=== PATIENT | female | born 1990 | race Caucasian/White ===

== ENCOUNTER → 2019-05-21 | Outpatient (CLI) | payer MEDICAID ==
[2019-05-21 10:49] LABS: HEMATOCRIT 32 % (35-52); HEMOGLOBIN 11.1 G/DL (11.5-16.0); MEAN CORPUSCULAR HEMOGLOBIN 33 PG (25-34); MEAN CORPUSCULAR HGB CONC 35 G/DL (32-36); MEAN CORPUSCULAR VOLUME 96 FL (80-99); RED CELL DISTRIBUTION WIDTH 13.7 % (10.0-14.5); WHITE BLOOD COUNT 5.8 10^3/uL (4.3-11.0)
[2019-05-21 10:50] LABS: BASOPHILS % (AUTO) 0 % (0-10); EOSINOPHILS # (AUTO) 0.1 10^3/uL (0.0-0.3); EOSINOPHILS % (AUTO) 2 % (0-10); LYMPHOCYTES # (AUTO) 1.3 X 10^3 (1.0-4.0); LYMPHOCYTES % (AUTO) 22 % (12-44); MEAN PLATELET VOLUME 10.4 FL (7.4-10.4); MONOCYTES # (AUTO) 0.4 X 10^3 (0.0-1.0); MONOCYTES % (AUTO) 7 % (0-12); NEUTROPHILS % (AUTO) 69 % (42-75); PLATELET COUNT 243 10^3/uL (130-400)
== END ==
LOC: LAB FS 09:45
PROVIDERS: ATTEND Family Medicine
DX: Z34.90 Encounter for supervision of normal pregnancy, unspecified, unspecified trimester (principal)
CPT/HCPCS: 36415; 82950; 85025; 86780; 86850; 87491

== ENCOUNTER 2019-06-23 16:35 | Outpatient (CLI) | payer MEDICAID ==
[~2019-06-23] VITALS: Ht 160 cm; Wt 66.9 kg
--- NOTE | 2019-06-23 16:30 | NUR ---
Pt arrived to unit ambulates self accompanied by s.o. wt obtained to room 315. plan of care reviewed with pt and s.o. void and gowned. To bed and oriented to room, call light and surroundings. to bed, monitors on.
[2019-06-23 16:50] VITALS: BP 121/83
[2019-06-23] MEDS ORDERED: PREN-37 PO (16:51)
[2019-06-23] MEDS ORDERED: VENL150C PO (16:51)
[2019-06-23 16:56] VITALS: BP 121/83
[2019-06-23 17:11] VITALS: BP 121/83
--- NOTE | 2019-06-23 17:55 | NUR ---
Up to bathroom.
[2019-06-23] MEDS ORDERED: BETAMETHASONE ACE/NA PHOS 6 MG/ML (CELESTONE SOLUSPAN) IM SCH (18:15)
[2019-06-23] MEDS ORDERED: TERBUTALINE INJ 1 MG/ML (BRETHINE) AMP SC ONE (18:15)
[2019-06-23] MEDS ORDERED: NS IV 1000 ML 1,000 ML IV ONE (18:15)
--- NOTE | 2019-06-23 19:32 | NUR ---
Dr. Bullard called with update on pt. Informed of recent contractions and FHT's. Informed that fluids are done, and that pt. is still 2cm, thick, and posterior. Dr. Bullard states that she is comfortable sending her home at this time. asks that nurse relay that pt will need to call office tomorrow to schedule next dose of Betamethasone.
[2019-06-23 19:41] VITALS: BP 116/74
--- NOTE | 2019-06-23 19:50 | NUR ---
Discharge paperwork reviewed. Pt. up and changed. Pt. left unit with SO smiling and talking. No s/s of distress.
--- NOTE | 2019-06-24 08:32 | Physician Query-Final Dx ---
Clinic Account Progress/Dx Physician Query: Please give diagnosis Please include # weeks gestation Date of Service June 23, 2019 at 16:35 GEORGES BETH June 24, 2019 08:32
== END 2019-06-23 19:50 ==
LOC: WSo 16:35 → LDRP 16:37 → WSo 19:50
PROVIDERS: ATTEND Family Medicine
DX: O62.9 Abnormality of forces of labor, unspecified (principal); Z3A.33 33 weeks gestation of pregnancy
CPT/HCPCS: 96360; 96372; 99214

== ENCOUNTER 2019-06-24 17:38 | Outpatient (CLI) | payer MEDICAID ==
[~2019-06-24] VITALS: Ht 160 cm; Wt 69.2 kg
[~2019-06-24 17:38] MED LIST: PREN-37 PO; VENL150C PO
--- NOTE | 2019-06-24 17:46 | NUR ---
ARCELIA LOMELI presented to unit via ambulation from ED, accompanied by s/o , with c/o CONTRACTIONS. Pt. weighed, gowned, voided, and to bed. EFHM and TOCO applied, VS taken. Pt. oriented to bed controls, call light, TV, heat, and A/C controls.
[2019-06-24 18:00] VITALS: BP 137/78
--- NOTE | 2019-06-24 18:07 | NUR ---
pt reports presenting to [facility] yesterday with same c/o's. states ctx's q 2-4 mins since 1600 today. was advised by to be evaluated. +FM. denies leaking fluid or vaginal bleeding.
[2019-06-24 18:11] LABS: BILIRUBIN,URINE NEGATIVE (NEGATIVE); CLARITY,URINE CLEAR; COLOR,URINE YELLOW; GLUCOSE, URINE (UA) NEGATIVE (NEGATIVE); KETONES,URINE 1+ (NEGATIVE); LEUKOCYTE ESTERASE ,URINE NEGATIVE (NEGATIVE); NITRITE,URINE NEGATIVE (NEGATIVE); PROTEIN,URINE NEGATIVE (NEGATIVE)
[2019-06-24 18:13] VITALS: BP 137/78
--- NOTE | 2019-06-24 18:18 | NUR ---
SVE per this RN. 1.5cm, thick, and posterior.
[2019-06-24 18:20] LABS: BACTERIA,URINE FEW /HPF; RBC,URINE RARE /HPF
--- NOTE | 2019-06-24 18:25 | NUR ---
was called with pt's admit c/o's. new orders received.
[2019-06-24] MEDS ORDERED: BETAMETHASONE ACE/NA PHOS 6 MG/ML (CELESTONE SOLUSPAN) ONE (18:34)
--- NOTE | 2019-06-24 18:46 | NUR ---
POC reviewed with pt and s/o. monitors dc'd.
--- NOTE | 2019-06-24 18:48 | NUR ---
dismissal instructions given, verbalizes understanding. reviewed sx's to RTC, encouraged to increase oral hydration, and Tylenol ES dosage for prn pain. signature page signed, placed on chart.
--- NOTE | 2019-06-24 18:55 | NUR ---
pt ambulated to private vehicle with @ side. pt stable with no sx's of distress noted.
[2019-06-25] MEDS ORDERED: BETAMETHASONE ACE/NA PHOS 6 MG/ML (CELESTONE SOLUSPAN) IM SCH (09:00)
--- NOTE | 2019-06-25 09:03 | Physician Query-Final Dx ---
GEORGES BETH 06/25/19 0903: Clinic Account Progress/Dx Physician Query: Please give diagnosis Please include # weeks gestation Date of Service June 24, 2019 at 17:38 INA ROBERTS MD 06/27/19 1819: Clinic Account Progress/Dx DIAGNOSIS: Diagnosis contractions at 33 1/7 wga. GEORGES BETH June 25, 2019 09:03 INA ROBERTS MD June 27, 2019 18:19
== END 2019-06-24 17:55 | disposition home or self-care (01) ==
LOC: WSo 17:38 → LDRP 17:39 → WSo 17:55
PROVIDERS: ATTEND Family Medicine
DX: O60.03 Preterm labor without delivery, third trimester (principal); Z3A.33 33 weeks gestation of pregnancy
CPT/HCPCS: 81000; 87088; 96372; 99213

== ENCOUNTER → 2019-07-16 | Outpatient (CLI) | payer MEDICAID | LOC: LAB FS 16:52 | PROVIDERS: ATTEND Family Medicine | DX: Z34.90 Encounter for supervision of normal pregnancy, unspecified, unspecified trimester (principal); Z3A.00 Weeks of gestation of pregnancy not specified | CPT/HCPCS: 87081 ==

== ENCOUNTER 2019-07-22 21:25 | Outpatient (CLI) | payer MEDICAID ==
[~2019-07-22] VITALS: Ht 160 cm; Wt 67.7 kg
--- NOTE | 2019-07-22 21:30 | NUR ---
ARCELIA LOMELI presented to unit via ambulation from ED, accompanied by SO, with c/o CONTRACTIONS. ARCELIA LOMELI weighed, gowned, voided, and to bed. EFHM and TOCO applied, VS taken. ARCELIA LOMELI oriented to bed controls, call light, TV, heat, and A/C controls.
[2019-07-22 21:40] VITALS: BP 133/97
--- NOTE | 2019-07-22 21:45 | NUR ---
Dr. ponce called regarding pt's arrival and exam. Will cont to monitor and orally hydrate for right now. Pt's due date clarified with , EDC 08-09-19, making pt 37.3weeks. sve no change since she was seen on friday at clinic. pt smokes 1 pk of cigarettes a day and did smoke before arriving.
[2019-07-22 21:52] LABS: BILIRUBIN,URINE NEGATIVE (NEGATIVE); CLARITY,URINE CLEAR; COLOR,URINE YELLOW; GLUCOSE, URINE (UA) NEGATIVE (NEGATIVE); KETONES,URINE TRACE (NEGATIVE); LEUKOCYTE ESTERASE ,URINE NEGATIVE (NEGATIVE); NITRITE,URINE NEGATIVE (NEGATIVE); PROTEIN,URINE TRACE (NEGATIVE)
[2019-07-22 22:09] LABS: AMORPHOUS SEDIMENT,UR FEW AMOR URATES /LPF; BACTERIA,URINE TRACE /HPF; RBC,URINE 0-2 /HPF
[2019-07-22] MEDS: D5 LR IV SOLUTION 1,000 ML IV SCH ×2 (22:39→23:45)
[2019-07-22 22:43] VITALS: BP 133/97
[2019-07-22] MEDS ORDERED: hydrOXYzine (VISTARIL/ATARAX) 25 MG capsule/tablet ONE (23:48)
[2019-07-23] MEDS ORDERED: hydrOXYzine (VISTARIL/ATARAX) 25 MG capsule/tablet PO ONE
[2019-07-23 00:25] VITALS: BP 127/81
[2019-07-23] MEDS: D5 LR IV SOLUTION 1,000 ML IV SCH (00:30)
[2019-07-23 06:00] VITALS: BP 124/58
--- NOTE | 2019-07-23 06:31 | NUR ---
Dr. Bullard called and updated on pt. DC orders received, and may eat breakfast. No need to do SVE, pt will be seen in clinic today and will check then.
--- NOTE | 2019-07-23 08:08 | NUR ---
ARCELIA LOMELI demonstrates understanding of discharge instructions and accurately returns instructions upon questioning. Copy of Post-Discharge Instructions and Medication Discharge Instructions given to patient. ARCELIA LOMELI is able to manage continuing needs after discharge. Patients belongings returned to patient. Skin dry and intact; no breakdown noted. Patient discharged from [facility] on 07-23-19 at 0808. ARCELIA LOMELI left floor via w/c, accompanied by s/o.
--- NOTE | 2019-07-23 08:30 | Physician Query-Final Dx ---
GEORGES BETH 07/23/19 0830: Clinic Account Progress/Dx Physician Query: Please give diagnosis Please include # weeks gestation Date of Service Jul 22, 2019 at 21:25 INA ROBERTS MD 07/26/19 1011: Clinic Account Progress/Dx DIAGNOSIS: Diagnosis Contractions without cervical change at 37 weeks and 3 days. GEORGES BETH Jul 23, 2019 08:30 INA ROBERTS MD Jul 26, 2019 10:11
== END 2019-07-23 08:08 | disposition home or self-care (01) ==
LOC: LDRP 21:25 → WSo 21:25
PROVIDERS: ATTEND Family Medicine
DX: Z34.93 Encounter for supervision of normal pregnancy, unspecified, third trimester (principal); Z3A.38 38 weeks gestation of pregnancy
CPT/HCPCS: 81000; 87088; 96360; 96361; 99214

== ENCOUNTER 2019-07-24 22:55 | Outpatient (CLI) | payer MEDICAID ==
[~2019-07-24] VITALS: Ht 160 cm; Wt 69.4 kg
--- NOTE | 2019-07-24 23:00 | NUR ---
ARCELIA LOMELI presented to unit via ambulation from ED, accompanied by s.o., with c/o CONTRACTIONS. ARCELIA LOMELI weighed, gowned, voided, and to bed. EFHM and TOCO applied, VS taken. ARCELIA LOMELI oriented to bed controls, call light, TV, heat, and A/C controls.
[2019-07-24] MEDS ORDERED: D5 LR IV SOLUTION 1,000 ML IV SCH (23:30)
[2019-07-24] MEDS ORDERED: D5 LR IV SOLUTION 1,000 ML IV ONE (23:33)
[2019-07-24 23:59] VITALS: BP 137/82
--- NOTE | 2019-07-25 00:16 | NUR ---
Dr. Devi called and informed of SVE results and ICU nurse at bedside attempting to start IV. Orders received to give fluids throughout night.
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
--- NOTE | 2019-07-25 00:44 | NUR ---
Signature sheet signed and placed on chart. Pt ambulating off unit at time with s.o. at side to private vehicle AMA. No distress noted.
--- NOTE | 2019-07-26 09:27 | Physician Query-Final Dx ---
Clinic Account Progress/Dx Physician Query: Please give diagnosis Please include # weeks gestation Date of Service Jul 24, 2019 at 22:55 GEORGES BETH Jul 26, 2019 09:27
== END 2019-07-25 00:44 | disposition left against medical advice (07) ==
LOC: WSo 22:55 → LDRP 22:56 → WSo 07-25 00:44
PROVIDERS: ATTEND Obstetrics & Gynecology
DX: O62.8 Other abnormalities of forces of labor (principal); Z3A.37 37 weeks gestation of pregnancy

== ENCOUNTER 2019-07-28 20:18 | Inpatient (IN) | payer MEDICAID ==
[~2019-07-28] VITALS: Ht 160 cm; Wt 69.4 kg
--- NOTE | 2019-07-28 20:25 | NUR ---
ARCELIA LOMELI presented to unit via ambulation from home/ED, accompanied by SO, with c/o LABOR. ARCELIA LOMELI weighed, gowned, voided, and to bed. EFHM and TOCO applied, VS taken. ARCELIA LOMELI oriented to bed controls, call light, TV, heat, and A/C controls.
[2019-07-28 20:45] VITALS: BP 136/87
[2019-07-28] MEDS ORDERED: MISOPROSTOL 100 MCG (CYTOTEC) TAB ONE (21:24)
[2019-07-28] MEDS ORDERED: MINERAL OIL CONCENTRATE 99.9% 15 ML UDC TOP PRN (22:45)
[2019-07-28] MEDS ORDERED: fentaNYL INJECTION 100 MCG/2 ML AMP IVP PRN (23:00)
[2019-07-28] MEDS: D5 LR IV SOLUTION 1,000 ML IV SCH (23:35)
[2019-07-28 23:41] VITALS: BP 135/86
[2019-07-29] VITALS (42 sets, daily range): BP systolic 114–149; BP diastolic 69–97
[2019-07-29] MEDS: CALCIUM CARBONATE 500 MG (TUMS) TAB.CHEW PO PRN ×2 (00:09→08:51)
[2019-07-29 00:24] LABS: BASOPHILS % (AUTO) 0 % (0-10); EOSINOPHILS # (AUTO) 0.1 10^3/uL (0.0-0.3); EOSINOPHILS % (AUTO) 1 % (0-10); HEMATOCRIT 30 % (35-52); HEMOGLOBIN 10.1 G/DL (11.5-16.0); LYMPHOCYTES # (AUTO) 1.3 X 10^3 (1.0-4.0); LYMPHOCYTES % (AUTO) 18 % (12-44); MEAN CORPUSCULAR HEMOGLOBIN 32 PG (25-34); MEAN CORPUSCULAR HGB CONC 34 G/DL (32-36); MEAN CORPUSCULAR VOLUME 94 FL (80-99); MEAN PLATELET VOLUME 10.7 FL (7.4-10.4); MONOCYTES # (AUTO) 0.5 X 10^3 (0.0-1.0); MONOCYTES % (AUTO) 7 % (0-12); NEUTROPHILS # (AUTO) 5.3 X 10^3 (1.8-7.8); NEUTROPHILS % (AUTO) 74 % (42-75); PLATELET COUNT 221 10^3/uL (130-400); RED CELL DISTRIBUTION WIDTH 14.2 % (10.0-14.5); WHITE BLOOD COUNT 7.1 10^3/uL (4.3-11.0)
[2019-07-29] MEDS: D5 LR IV SOLUTION 1,000 ML IV SCH (05:12)
[2019-07-29] MEDS ORDERED: CATHETER FLUSH 10 ML SYR IV SCH ×2 (06:00→14:00)
[2019-07-29] MEDS ORDERED: LACTATED RINGERS 1,000 ML IV SCH (07:00)
[2019-07-29] MEDS ORDERED: OXYTOCIN PRE-MIX DRIP 500 ML IV SCH ×2 (07:01→10:49)
[2019-07-29] MEDS ORDERED: fentaNYL 2 mcg/ml BUPIVA 0.125 100 ML ONE (07:21)
[2019-07-29] MEDS ORDERED: LACTATED RINGERS 1,000 ML IV ONE ×3 (07:24→08:08)
--- NOTE | 2019-07-29 07:39 | NUR ---
Luisana Donohue CRNA here for epidural placement. Procedure explained, consent reviewed and signed by anesthesia. Questions answered to patient's satisfaction. Time out taken to verify correct patient/procedure. Patient up to side of bed, assisted into sitting position. Betadine prep done x3 and sterile drape applied. Local done, see anesthesia record. Test dose given, see anesthesia record for drug and dosage. Epidural catheter secured in place. Epidural placement complete. Assisted back into bed, monitors adjusted. Epidural dosed, see anesthesia record. Epidural of Fentanyl/Bupvicaine @12cc/hr stated per pump. Patient tolerated procedure well.
[2019-07-29] MEDS ORDERED: fentaNYL INJECTION 100 MCG/2 ML AMP ONE (07:43)
[2019-07-29] MEDS ORDERED: BUPIVACAINE 0.25% 30 ML (SENSORCAINE) VIAL ONE (08:08)
[2019-07-29] MEDS ORDERED: ONDANSETRON 4 MG/2 ML (SDV) Z0FRAN IV PRN (08:15)
[2019-07-29] MEDS ORDERED: EPIDURAL (fentaNYL 2 MCG/ML BUPIVA 0.125%)100 ML BAG EPI PRN (08:15)
[2019-07-29] MEDS ORDERED: NALOXONE 0.4 MG/ML 1 ML (NARCAN) VIAL IV PRN (08:15)
--- NOTE | 2019-07-29 10:03 | History & Physical-OB ---
OB - Chief Complaint & HPI Date/Time Date of Admission: Date of Admission: Jul 28, 2019 at 21:42 Date seen by a Provider: Jul 29, 2019 Time Seen by a Provider: 09:50 Chief Complaint/History OB-Reason for Admission/Chief: Onset of Labor Hx : 6 Hx Para: 3 Expected Date of Delivery: Aug 09, 2019 Gestational Age in Weeks: 38 Gestational Age in Days: 3 Allergies and Home Medications Allergies Coded Allergies: cephalexin (Verified Allergy, Mild, 07/14/14) latex (Verified Allergy, Mild, 07/14/14) amoxicillin (Verified Allergy, Unknown, Vomiting, 06/23/19) Home Medications Vit/Iron Fumarate/FA 1 Each Tablet, 1 EACH PO DAILY, (Reported) Venlafaxine HCl 150 Mg Cap.er.24h, 150 MG PO DAILY, (Reported) Patient Home Medication List Home Medication List Reviewed: Yes OB - History Hx of Present Care: Yes Ultrasounds: Normal mid trimester US Obstetrical Complications: None Medical Complications: None Obstetrical History Hx : 6 Hx Para: 3 Hx Total # of Abortions (Spona: 2 Patient Past Medical History anxiety Social History/Family History Recent Infectious Disease Expo: No Alcohol Use: Denies Use Recreational Drug Use: No 2nd Hand Smoke Exposure: Yes OB - Admission Exam Physical Exam Vitals: Vital Signs 07/29/19 07/29/19 07:15 08:50 Temp 36.2 Pulse 86 Resp 18 B/P (MAP) 136/87 (103) Pulse Ox 99 O2 Delivery Room Air HEENT: NCAT Heart: Rhythm Normal Lungs: Clear Abdomen: Gravid Extremities: Normal Reflexes: Normal Cervical Dilatation: 6cm Effacement: 100% Station: -2 Membranes: Intact Heart Rate: 130's Accelerations: No Accelerations Decelerations: No Decelerations Short Term Variability: Present Coping Machine Operator Variability: Average (6-25) Contractions on Admission: < 5 Minutes Apart OB - Assessment/Plan/Diagnosis Assessment Admission Dx Normal labor at 38 3/7 wga. Admission Status: Inpatient Order (span 2 midnights) Reason for Inpatient Admission: Labor. Plan Plan: Other Other Plan Augment with pitocin. Epidural for pain. AROM shows thick meconium. Will call provider for delivery to suctioning. INA ROBERTS MD Jul 29, 2019 10:03
--- NOTE | 2019-07-29 10:54 | OB Labor & Delivery Record ---
Vag Delivery Note Vag Delivery Note Date of Delivery: 07/29/19 Preoperative Diagnosis: Allyson Brown is a (28 /Para 6 / 3, Gestational Age (wks)38with [3 days] Postoperative Diagnosis: Same Surgeon: INA ROBERTS Copyright Expert: [none] Anesthesia: [epidural] Delivery Type: [] Findings: [] Viable [male] infant, apgars [8/9] Lacerations:None Intact placenta with 3 vessel cord. No nuchal cord, body cord or shoulder dystocia Estimated Blood Loss: [250] ml Complications: None Condition: Stable Description of Procedure: The patient is a 28 year old female who presented [in labor]. She was admitted and informed consent was obtained. Her labor course was remarkable for [thick meconium] She progressed to complete dilatation and began to push. She was then set up for delivery. The 's head was delivered atraumatically in the [OA] position. The shoulders and remainder of the 's body were then delivered without difficulty. Upon delivery, the head was held below the level of the perineum and the mouth and nares were bulb suctioned. The cord was doubly clamped and cut after 60 seconds by father of on maternal abdomen. An intact placenta with 3-vessel cord delivered via Florin and there was found to be minimal bleeding.~ Vigorous fundal massage was performed and the fundus was found to be firm. IV oxytocin was given. Examination of the vagina and perineum revealed no lacerations. Following the repair, sponge, instrument and needle counts were correct. Mom and baby were both in stable condition in the labor suite. Vitals - Labs Vital Signs - I&O Vital Signs Date Time Temp Pulse Resp B/P (MAP) Pulse Ox O2 Delivery O2 Flow Rate FiO2 07/29/19 08:50 86 18 136/87 (103) 99 Room Air 07/29/19 08:45 83 18 137/83 (101) 98 Room Air 07/29/19 08:40 79 18 137/83 (101) 99 Room Air 07/29/19 08:32 69 18 131/90 (104) 98 Room Air 07/29/19 08:29 76 18 143/95 (111) 98 Room Air 07/29/19 08:26 69 18 136/97 (110) 98 Room Air 07/29/19 08:23 74 18 135/79 (97) 98 Room Air 07/29/19 08:20 74 18 127/87 (100) 98 Room Air 07/29/19 08:16 67 18 123/83 (96) 98 Room Air 07/29/19 08:13 68 18 128/89 (102) 98 Room Air 07/29/19 08:10 79 18 131/91 (104) 99 Room Air 07/29/19 08:07 68 18 137/87 (104) 99 Room Air 07/29/19 08:04 80 18 149/88 (108) 99 Room Air 07/29/19 08:01 75 18 136/86 (103) 96 Room Air 07/29/19 07:58 68 18 148/71 (96) 96 Room Air 07/29/19 07:53 74 18 127/89 (102) 100 Room Air 07/29/19 07:49 75 18 140/90 (107) 100 Room Air 07/29/19 07:40 66 18 140/91 (107) 100 Room Air 07/29/19 07:15 36.2 07/29/19 02:54 36.0 71 18 120/75 (90) Room Air 07/28/19 23:41 36.3 80 18 135/86 (102) 99 Room Air 07/28/19 20:45 36.4 84 18 100 Room Air INA ROBERTS MD Jul 29, 2019 10:54
[2019-07-29] MEDS ORDERED: MEASLES,MUMPS,RUBELLA 1 EA INJ SQ ONE (11:00)
[2019-07-29] MEDS ORDERED: TETANUS,DIPTH,PERTUSS P/F (BOOSTRIX) 0.5 ML VIAL IM ONE (11:00)
[2019-07-29] MEDS ORDERED: WITCH HAZEL(TUCKS) 40 EA JAR TOP PRN (11:00)
[2019-07-29] MEDS ORDERED: BENZOCAINE/MENTHOL (DERMOPLAST) 60 ML CAN TP PRN (11:00)
[2019-07-29] MEDS ORDERED: ACETAMINOPHEN 500 MG TAB (TYLENOL) PO SCH (14:00)
[2019-07-29] MEDS: IBUPROFEN 600 MG (MOTRIN) TAB PO SCH ×2 (15:16→21:07)
--- NOTE | 2019-07-29 15:30 | NUR ---
Motrin given. FFU/2, light rubra lochia noted, no clots expressed. Pericare performed, fresh vpad and underwear on. Pt assisted to standing position at side of bed, fresh gown on, to wheelchair without incident. Wheeled to room 309 accompanied by RN, S.O. and infant and assisted back to bed. Pt and S.O. oriented to room and call light. packet explained. Pt denies needs or concerns at this time.
[2019-07-29] MEDS: DOCUSATE SODIUM 100 MG (COLACE) CAP PO SCH (21:07)
[2019-07-30] MEDS: IBUPROFEN 600 MG (MOTRIN) TAB PO SCH ×2 (04:08→09:43)
[2019-07-30 04:10] VITALS: BP 119/57
[2019-07-30 06:07] LABS: BASOPHILS % (AUTO) 0 % (0-10); EOSINOPHILS # (AUTO) 0.1 10^3/uL (0.0-0.3); EOSINOPHILS % (AUTO) 2 % (0-10); HEMATOCRIT 27 % (35-52); HEMOGLOBIN 8.8 G/DL (11.5-16.0); LYMPHOCYTES # (AUTO) 1.8 X 10^3 (1.0-4.0); LYMPHOCYTES % (AUTO) 25 % (12-44); MEAN CORPUSCULAR HEMOGLOBIN 31 PG (25-34); MEAN CORPUSCULAR HGB CONC 33 G/DL (32-36); MEAN CORPUSCULAR VOLUME 95 FL (80-99); MEAN PLATELET VOLUME 10.6 FL (7.4-10.4); MONOCYTES # (AUTO) 0.6 X 10^3 (0.0-1.0); MONOCYTES % (AUTO) 8 % (0-12); NEUTROPHILS # (AUTO) 4.7 X 10^3 (1.8-7.8); NEUTROPHILS % (AUTO) 65 % (42-75); PLATELET COUNT 202 10^3/uL (130-400); RED CELL DISTRIBUTION WIDTH 14.3 % (10.0-14.5); WHITE BLOOD COUNT 7.2 10^3/uL (4.3-11.0)
[2019-07-30] MEDS ORDERED: PRENATAL VITAMIN 1 EA TAB PO SCH (07:00)
[2019-07-30] MEDS ORDERED: VENlafaxine XR 75 MG (EFFEXOR XR) CAP PO SCH (07:00)
--- NOTE | 2019-07-30 07:15 | NUR ---
Dr Bullard here to see pt.
--- NOTE | 2019-07-30 07:36 | NUR ---
report given to Summer FOREMAN
[2019-07-30 07:53] VITALS: BP 130/79
--- NOTE | 2019-07-30 08:19 | Anesthesia-Regional Post-Op ---
Regional Patient Condition Mental Status: Alert, Oriented x3 Circulation: Same as Pre-Op Headache: Absent Sensation: Full Recovery Motor Block: Absent Post Op Complications Complications None Follow Up Care/Instructions Patient Instructions None needed. Anesthesia/Patient Condition Patient is doing well, no complaints, stable vital signs, no apparent adverse anesthesia problems. No complications reported per nursing. ALYSSA MAHAJAN CRNA Jul 30, 2019 08:19
[2019-07-30] MEDS: DOCUSATE SODIUM 100 MG (COLACE) CAP PO SCH (09:42)
[2019-07-30] MEDS ORDERED: IBUP-844 PO (10:20)
--- NOTE | 2019-07-30 10:21 | Discharge Summary ---
Discharge Inst-Women's Serv Reconcile Patient Problems Problems Reviewed?: Yes Depart Medications New, Converted or Re-Newed RX: Transmitted to Pharmacy Follow Up/Instructions Goal/Follow Up: [address] Roberts Activity Activity: Activity as Tolerated Driving Instructions: You May Drive NO SMOKING: NO SMOKING Nothing Inside Vagina: No Douching, No [place], No Tampons Diet Discharge Diet: No Restrictions Symptoms to Report to : Fever Over 101 Degrees F, Vaginal Bleeding Increase For Any Problems or Questions: Contact Your Physician INA ROBERTS MD Jul 30, 2019 10:21
--- NOTE | 2019-07-30 10:25 | Discharge Summary ---
Diagnosis/Chief Complaint Date of Admission Jul 28, 2019 at 21:42 Date of Discharge July 29, 2019 Admission Diagnosis Admission Diagnosis Term labor at 38 3/7 wga Discharge Diagnosis Term vaginal delivery at 38 3/7 wga Problems/Diagnosis: (1) care following vaginal delivery Assessment & Plan: Patient had vaginal delivery. see note for details. Post- course was uneventful. Discharge Summary-OBS Procedures None. Discharge Physical Examination Allergies: Coded Allergies: cephalexin (Verified Allergy, Mild, 07/14/14) latex (Verified Allergy, Mild, 07/14/14) amoxicillin (Verified Allergy, Unknown, Vomiting, 06/23/19) Vitals & I&Os Vital Sign - Last 12Hours Date Time Temp Pulse Resp B/P (MAP) Pulse Ox O2 Delivery O2 Flow Rate FiO2 07/30/19 07:53 36.6 64 18 130/79 (96) 99 Room Air General Appearance: Alert, Oriented X3 HEENT: Atraumatic Respiratory: Clear to Auscultation Cardiovascular: Regular Rate Abdominal: Other (fundus firm below umbilicus) Extremities: No Edema Skin: No Rashes Neuro: Normal Gait Psych/Mental Status: Mental Status NL Hospital Course Was the Problem List Reviewed?: Yes Unremarkable. Labs Laboratory Tests 07/30/19 05:45: White Blood Count 7.2, Red Blood Count 2.80L, Hemoglobin 8.8L, Hematocrit 27L, Mean Corpuscular Volume 95, Mean Corpuscular Hemoglobin 31, Mean Corpuscular Hemoglobin Concent 33, Red Cell Distribution Width 14.3, Platelet Count 202, Mean Platelet Volume 10.6H, Neutrophils (%) (Auto) 65, Lymphocytes (%) (Auto) 25, Monocytes (%) (Auto) 8, Eosinophils (%) (Auto) 2, Basophils (%) (Auto) 0, Neutrophils # (Auto) 4.7, Lymphocytes # (Auto) 1.8, Monocytes # (Auto) 0.6, Eosinophils # (Auto) 0.1, Basophils # (Auto) 0.0 Discharge Instructions to patient/family Please see electronic discharge instructions given to patient. Discharge Medications Reviewed and agree with Discharge Medication list on patient's Discharge Instruction sheet Clinical Quality Measures DVT/VTE Risk/Contraindication: Risk Factor Score Per Nursin RFS Level Per Nursing on Admit: 2=Moderate INA ROBERTS MD Jul 30, 2019 10:25
[2019-07-30 11:36] VITALS: BP 130/79
--- NOTE | 2019-07-30 12:30 | NUR ---
ARCEILA LOMELI demonstrates understanding of discharge instructions and accurately returns instructions upon questioning. Copy of Post-Discharge Instructions and Medication Discharge Instructions given to patient. ARCELIA LOMELI is able to manage continuing needs after discharge. Patients belongings returned to patient. Skin dry and intact; no breakdown noted. Patient discharged from [facility] on 07/30/19 at 1230 . ARCELIA LOMELI left floor via ambulation, accompanied by and women services staff.
== END 2019-07-30 12:30 | disposition home or self-care (01) | DRG 807 ==
LOC: LDRP 20:18 → WSo 20:18 → LDRP 21:42
PROVIDERS: ADMIT Family Medicine; ATTEND Family Medicine
PROC: 10E0XZZ Delivery of Products of Conception, External Approach (ICD-10-PCS; principal; 2019-07-29)
DX: O77.0 Labor and delivery complicated by meconium in amniotic fluid (principal); Z3A.38 38 weeks gestation of pregnancy; Z37.0 Single live birth
CPT/HCPCS: 36415; 85025; 86850; 86900; 86901; 99212

== ENCOUNTER 2019-09-27 12:04 | Emergency (ER) | payer MEDICAID ==
[~2019-09-27 12:04] MED LIST changes: +IBUP-844 PO
[2019-09-27 12:12] VITALS: BP 141/89
--- NOTE | 2019-09-27 12:24 | ED Lower Extremity ---
General Chief Complaint: Lower Extremity Stated Complaint: LT KNEE INJ Nursing Triage Note: Twisted left knee and heard a pop about an hour ago. Is currently rating pain at 5/10. Has not had pain meds prior to arrival. Pain is worsened by bending the knee and walking. Nursing Sepsis Screen: No Definite Risk Source: patient Exam Limitations: no limitations History of Present Illness Date Seen by Provider: Sep 27, 2019 Time Seen by Provider: 12:10 Initial Comments The patient is a pleasant 28-year-old female who presents for evaluation of left knee pain. 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 She felt immediate pain and was unable to fully weight-bear without excruciating pain. She denies previous injury to the left knee. She is alert and oriented 4, calm, and appears to be in no distress. She states that she has crutches at home. Her drove her to the emergency department today. She says that when she straightened the leg out it doesn't hurt very much but when she bends it the pain gets significantly worse. It does not feel unstable when walking. Onset: just prior to arrival Severity: moderate Pain/Injury Location: left knee Method of Injury: twisted Modifying Factors: Improves With Movement (and weight-bearing make it worse) Allergies and Home Medications Allergies Coded Allergies: cephalexin (Verified Allergy, Mild, 07/14/14) latex (Verified Allergy, Mild, 07/14/14) amoxicillin (Verified Allergy, Unknown, Vomiting, 06/23/19) Home Medications Ibuprofen 600 Mg Tablet, 600 MG PO Q6HR PRN for PAIN-MODERATE (5-7) Prescribed by: INA ROBERTS on 07/30/19 1020 Vit/Iron Fumarate/FA 1 Each Tablet, 1 EACH PO DAILY, (Reported) Venlafaxine HCl 150 Mg Cap.er.24h, 150 MG PO DAILY, (Reported) Patient Home Medication List Home Medication List Reviewed: Yes Review of Systems Constitutional: no symptoms reported EENTM: no symptoms reported Respiratory: no symptoms reported Cardiovascular: no symptoms reported Gastrointestinal: no symptoms reported Genitourinary: no symptoms reported Musculoskeletal: joint pain (left knee) Skin: no symptoms reported Psychiatric/Neurological: No Symptoms Reported All Other Systems Reviewed Negative Unless Noted: Yes Past Gnxzdqb-Wzjfnu-Umgtbq Hx Past Med/Social Hx: Reviewed Nursing Past Med/Soc Hx Patient Social History Alcohol Use: Denies Use Recreational Drug Use: No Smoking Status: Current Everyday Smoker Type Used: Cigarettes 2nd Hand Smoke Exposure: Yes Recent Foreign Travel: No Contact w/Someone Who Travel: No Recent Infectious Disease Expo: No Recent Hopitalizations: No Physical Abuse: No Sexual Abuse: No Mistreated: No Fear: No Seasonal Allergies Seasonal Allergies: No Past Medical History Surgeries: No Abdominal Respiratory: Yes Asthma Cardiac: No Neurological: No Genitourinary: No Gastrointestinal: No Musculoskeletal: No Endocrine: Yes HEENT: No Cancer: No Psychosocial: Yes Anxiety, Depression Integumentary: No Blood Disorders: No Family Medical History Patient reports no known family medical history. Diabetes, Psychiatric Problems, Vascular Disease Physical Exam Vital Signs Vital Signs - First Documented 09/27/19 12:12 Temp 36.3 Pulse 70 Resp 16 B/P (MAP) 141/89 (106) Pulse Ox 99 Capillary Refill : Less Than 3 Seconds Height, Weight, BMI Height: 5'3" Weight: 120lbs. oz. [id number]; 27.10 BMI Method: General Appearance: WD/WN, no apparent distress HEENT: PERRL/EOMI, pharynx normal Neck: full range of motion, normal inspection Cardiovascular: regular rate, rhythm, no edema, no JVD Respiratory: normal breath sounds, no respiratory distress, no accessory muscle use Back: normal inspection, no vertebral tenderness Hips: bilateral hip non-tender, bilateral hip normal inspection, bilateral hip normal range of motion Knees: left knee soft tissue tenderness (left anterior/medial knee), left knee other (discomfort with anterior drawer on left) Ankles: bilateral ankle non-tender, bilateral ankle normal inspection, bilateral ankle normal range of motion Neurologic/Psychiatric: fitter mechanic II-XII nml as tested, no motor/sensory deficits, alert, normal mood/affect, oriented x 3 Skin: normal color, warm/dry Progress/Results/Core Measures Results/Orders My Orders Orders - KYLEE WHITE DO Knee 3 View Left (09/27/19 12:13) Ice: Apply To Affected Area (09/27/19 12:18) Knee Immobilizer (09/27/19 12:18) Tramadol Tablet (Ultram Tablet) (8/10/20 12:30) Vital Signs/I&O 09/27/19 12:12 Temp 36.3 Pulse 70 Resp 16 B/P (MAP) 141/89 (106) Pulse Ox 99 Blood Pressure Mean: 106 Progress Progress Note : Progress Note @1232 - patient updated on x-ray results which are acutely unremarkable. She'll be given a knee immobilizer and crutches as well as pain medication to go home with. Advised the patient to follow up with orthopedics within the next 1-2 days and to return to the emergency department immediately for new or worsening symptoms. Diagnostic Imaging Diagonstic Imaging: Xray Comments [facility]. [place], [place] NAME: ARCELIA LOMELI [facility] REC#: [id number] PT STATUS: REG ER : 1990 PHYSICIAN: KYLEE WHITE DO ADMIT DATE: 09/27/19/ER FS Draft Date of Exam:09/27/19 KNEE 3 VIEW LEFT INDICATION: Twisted left knee and pain. TIME OF EXAM: 12:21 PM 3 views of the left knee were obtained. FINDINGS: Alignment is normal. Joint spaces are well maintained. The articular surfaces are smooth. No fracture, dislocation or effusion is detected. IMPRESSION: No acute bony abnormality is detected. Dictated on workstation # [id number] Dict: 09/27/19 1225 Trans: 09/27/19 1226 [id number] Interpreted by: JANA TENA MD Electronically signed by: Departure Impression Primary Impression: Internal derangement of left knee Disposition: 01 HOME, SELF-CARE Condition: Stable Departure-Patient Inst. Decision time for Depature: 12:35 Referrals: INA ROBERTS MD (PCP/Family) Primary Care Physician Patient Instructions: Internal Derangement of the Knee Add. Discharge Instructions: Follow-up with orthopedics in the next 1-2 days. Return to the emergency Department immediately for new or worsening symptoms. Take the prescribed medicine as directed, as needed. Use the knee immobilizer and crutches provided. Scripts Hydrocodone/Acetaminophen (Hydrocodone-Acetamin 5-325 mg) 1 Each Tablet 1 EACH PO Q4H PRN for PAIN-MODERATE (5-7) for 5 Days, #15 TAB Prov: KYLEE WHITE DO 09/27/19 KYLEE WHITE DO Sep 27, 2019 12:24
--- NOTE | 2019-09-27 12:27 | Diagnostic Imaging Report ---
INDICATION: Twisted left knee and pain. TIME OF EXAM: 12:21 PM 3 views of the left knee were obtained. FINDINGS: Alignment is normal. Joint spaces are well maintained. The articular surfaces are smooth. No fracture, dislocation or effusion is detected. IMPRESSION: No acute bony abnormality is detected. Dictated by: Dictated on workstation # [id number]
[2019-09-27] MEDS ORDERED: HYDR-3812 PO (12:40)
== END 2019-09-27 12:45 | disposition home or self-care (01) ==
LOC: EDUNIT# 12:04 → ER FS 12:06
DX: M23.92 Unspecified internal derangement of left knee (principal); F41.9 Anxiety disorder, unspecified; F32.9 Major depressive disorder, single episode, unspecified; Z88.1 Allergy status to other antibiotic agents; F17.210 Nicotine dependence, cigarettes, uncomplicated; Z91.040 Latex allergy status; Z88.0 Allergy status to penicillin; X50.1XXA Overexertion from prolonged static or awkward postures, initial encounter; Y92.59 Other trade areas as the place of occurrence of the external cause
CPT/HCPCS: 73562

== ENCOUNTER → 2020-01-04 | Outpatient (CLI) | payer MEDICAID ==
[~2020-01-04] MED LIST changes: +ACHD5005 PO
[2020-01-04 16:47] LABS: BASOPHILS % (AUTO) 1 % (0-10); EOSINOPHILS # (AUTO) 0.1 10^3/uL (0.0-0.3); EOSINOPHILS % (AUTO) 1 % (0-10); HEMATOCRIT 40 % (35-52); HEMOGLOBIN 13.8 G/DL (11.5-16.0); LYMPHOCYTES # (AUTO) 1.7 X 10^3 (1.0-4.0); LYMPHOCYTES % (AUTO) 25 % (12-44); MEAN CORPUSCULAR HEMOGLOBIN 31 PG (25-34); MEAN CORPUSCULAR HGB CONC 35 G/DL (32-36); MEAN CORPUSCULAR VOLUME 90 FL (80-99); MEAN PLATELET VOLUME 10.1 FL (7.4-10.4); MONOCYTES # (AUTO) 0.4 X 10^3 (0.0-1.0); MONOCYTES % (AUTO) 5 % (0-12); NEUTROPHILS # (AUTO) 4.6 X 10^3 (1.8-7.8); NEUTROPHILS % (AUTO) 68 % (42-75); PLATELET COUNT 257 10^3/uL (130-400); WHITE BLOOD COUNT 6.8 10^3/uL (4.3-11.0)
[2020-01-04 17:01] LABS: ERYTHROCYTE SEDIMENTATION RATE 3 MM/HR (0-20)
[2020-01-04 17:08] LABS: ALANINE AMINOTRANSFERASE 17 U/L (0-55); ALBUMIN 4.6 GM/DL (3.2-4.5); ALKALINE PHOSPHATASE 58 U/L (40-136); BILIRUBIN,TOTAL 0.9 MG/DL (0.1-1.0); BUN/CREATININE RATIO 12; CALCIUM 9.3 MG/DL (8.5-10.1); CARBON DIOXIDE 25 MMOL/L (21-32); CHLORIDE 104 MMOL/L (98-107); CREATININE SERUM 0.73 MG/DL (0.60-1.30); GFR ESTIMATED > 60; GLUCOSE 85 MG/DL (70-105); POTASSIUM 3.9 MMOL/L (3.6-5.0); SODIUM 140 MMOL/L (135-145); TOTAL PROTEIN 7.1 GM/DL (6.4-8.2)
== END ==
LOC: LAB FS 15:47
PROVIDERS: ATTEND Family Medicine
DX: M25.50 Pain in unspecified joint (principal)
CPT/HCPCS: 36415; 80053; 85025; 85652; 86038; 86141; 86200

== ENCOUNTER 2020-01-07 15:06 | Emergency (ER) | payer MEDICAID ==
[~2020-01-07] VITALS: Ht 157 cm; Wt 62.0 kg
[2020-01-07 15:18] VITALS: BP 128/93
--- NOTE | 2020-01-07 15:27 | ED Upper Extremity ---
General Chief Complaint: Upper Extremity Stated Complaint: LT HAND PAIN Source: patient History of Present Illness Date Seen by Provider: Jan 07, 2020 Time Seen by Provider: 15:15 Initial Comments Patient is a 29-year-old right-handed female presents with injury to her left hand. Patient was walking by her kitchen when she actually bumped the dorsum of her left hand onto a hard countertop. There is minimal bruising no swelling redness or deformity appreciated. Patient has full use of left hand. Patient did apply ice prior to coming to the ED. Onset: just prior to arrival Pain/Injury Location: left hand Method of Injury: direct blow Modifying Factors: Improves With Cold Therapy Allergies and Home Medications Allergies Coded Allergies: cephalexin (Verified Allergy, Mild, 07/14/14) latex (Verified Allergy, Mild, 07/14/14) amoxicillin (Verified Allergy, Unknown, Vomiting, 06/23/19) Home Medications Hydrocodone/Acetaminophen 1 Each Tablet, 1 EACH PO Q4H PRN for PAIN-MODERATE (5- 7) Prescribed by: KYLEE WHITE on 09/27/19 1240 Ibuprofen 600 Mg Tablet, 600 MG PO Q6HR PRN for PAIN-MODERATE (5-7) Prescribed by: INA ROBERTS on 07/30/19 1020 Vit/Iron Fumarate/FA 1 Each Tablet, 1 EACH PO DAILY, (Reported) Venlafaxine HCl 150 Mg Cap.er.24h, 150 MG PO DAILY, (Reported) Patient Home Medication List Home Medication List Reviewed: Yes Review of Systems Constitutional: see HPI EENTM: see HPI Respiratory: see HPI Cardiovascular: see HPI Gastrointestinal: see HPI Genitourinary: see HPI Musculoskeletal: see HPI Skin: see HPI Psychiatric/Neurological: See HPI Past Eyclkii-Fpdamz-Lzlnqn Hx Past Med/Social Hx: Reviewed Nursing Past Med/Soc Hx Patient Social History Alcohol Use: Denies Use Recreational Drug Use: No Smoking Status: Current Everyday Smoker Type Used: Cigarettes 2nd Hand Smoke Exposure: Yes Recent Foreign Travel: No Contact w/Someone Who Travel: No Recent Hopitalizations: No Physical Abuse: No Sexual Abuse: No Mistreated: No Fear: No Seasonal Allergies Seasonal Allergies: No Past Medical History Surgeries: No Abdominal Respiratory: Yes Asthma Cardiac: No Neurological: No Genitourinary: No Gastrointestinal: No Musculoskeletal: No Endocrine: Yes HEENT: No Cancer: No Psychosocial: Yes Anxiety, Personality Disorder, Schizophrenia, Depression Integumentary: No Blood Disorders: No Family Medical History Patient reports no known family medical history. Diabetes, Psychiatric Problems, Vascular Disease Physical Exam Vital Signs Capillary Refill : Height, Weight, BMI Height: 5'3" Weight: 120lbs. oz. 54.585390pr; 27.10 BMI Method: General Appearance: WD/WN, no apparent distress HEENT: PERRL/EOMI Hand: soft tissue tenderness (dorsum of left mid hand with small bruise) Neurologic/Tendon: normal sensation, normal motor functions Neurologic/Psychiatric: licensed mental health professional II-XII nml as tested Departure Communication (Admissions) Minor contusion to left hand. No imaging indicated at this time. Recommend supportive care with PCP follow-up as needed Impression Primary Impression: Contusion of hand Disposition: 01 HOME, SELF-CARE Condition: Stable Departure-Patient Inst. Decision time for Depature: 15:27 Referrals: INA ROBERTS MD (PCP/Family) Primary Care Physician Patient Instructions: Contusion (DC) Add. Discharge Instructions: Please take ibuprofen for pain and apply ice to affected areas needed. All discharge instructions reviewed with patient and/or family. Voiced understanding. SAMEER BARDALES DO Jan 07, 2020 15:27
== END 2020-01-07 15:37 | disposition home or self-care (01) ==
LOC: EDUNIT# 15:06 → ER FS 15:07
DX: S60.222A Contusion of left hand, initial encounter (principal); F41.9 Anxiety disorder, unspecified; F32.9 Major depressive disorder, single episode, unspecified; F17.210 Nicotine dependence, cigarettes, uncomplicated; Z91.040 Latex allergy status; Z88.1 Allergy status to other antibiotic agents; Z83.3 Family history of diabetes mellitus; W22.8XXA Striking against or struck by other objects, initial encounter
CPT/HCPCS: 99282

== ENCOUNTER → 2020-06-07 | Outpatient (CLI) | payer MEDICAID | LOC: LAB FS 15:46 | PROVIDERS: ATTEND Family Medicine | DX: N92.5 Other specified irregular menstruation (principal) | CPT/HCPCS: 36415; 84702 ==

== ENCOUNTER 2021-03-26 17:37 | Emergency (ER) | payer MEDICAID ==
[~2021-03-26] VITALS: Ht 157.4 cm; Wt 54.5 kg
[2021-03-26] MEDS ORDERED: RT-ALBUTEROL HFA 8.5 GM INHALER IH STA (17:51)
[2021-03-26] MEDS ORDERED: KETOROLAC 30 MG/ML VIAL ONE (17:53)
[2021-03-26] MEDS ORDERED: KETOROLAC 30 MG/ML VIAL IM ONE (18:00)
[2021-03-26] MEDS ORDERED: RT-ALBUINH IH (18:07)
--- NOTE | 2021-03-26 18:07 | ED Cough/URI ---
General Chief Complaint: Respiratory Problems Stated Complaint: SOB Source: patient Exam Limitations: no limitations History of Present Illness Date Seen by Provider: Mar 26, 2021 Time Seen by Provider: 17:39 Initial Comments 30-year-old female with past medical history of hypertension and anxiety coming in due to cough, fever, body aches, shortness of breath at all started around 24 hours ago. Had a send out Covid test performed which no results are back yet. Has not been vaccinated. Is unsure if she has been around anyone that is positive. Denies any vomiting, diarrhea, chest pain, abdominal pain, rash, or any other concerns. She also says she has an inhaler typically but she has run out. Allergies and Home Medications Allergies Coded Allergies: cephalexin (Verified Allergy, Mild, 07/14/14) latex (Verified Allergy, Mild, 07/14/14) amoxicillin (Verified Allergy, Unknown, Vomiting, 06/23/19) Patient Home Medication List Home Medication List Reviewed: Yes Albuterol Sulfate (Proair Hfa) 1 Puff Puff, 2 PUFF IH Q4H PRN for shortness of breath Prescribed by: JULIA PUENTE on 03/26/21 1807 Hydrocodone/Acetaminophen (Hydrocodone-Acetamin 5-325 mg) 1 Each Tablet, 1 EACH PO Q4H PRN for PAIN-MODERATE (5-7) Prescribed by: KYLEE WHITE on 09/27/19 1240 Ibuprofen (Ibu) 600 Mg Tablet, 600 MG PO Q6HR PRN for PAIN-MODERATE (5-7) Prescribed by: INA ROBERTS on 07/30/19 1020 Vit/Iron Fumarate/FA ( Tablet) 1 Each Tablet, 1 EACH PO DAILY, (Reported) Entered as Reported by: JAVAN FELIPE on 06/23/19 165 Venlafaxine HCl (Effexor Xr) 150 Mg Cap.er.24h, 150 MG PO DAILY, (Reported) Entered as Reported by: JAVAN FELIPE on 06/23/19 165 Review of Systems Review of Systems Constitutional: chills, fever EENTM: No blurred vision Respiratory: cough, short of breath Cardiovascular: No chest pain Gastrointestinal: No abdominal pain, No diarrhea, No nausea, No vomiting Genitourinary: no symptoms reported Musculoskeletal: no symptoms reported Skin: no symptoms reported Psychiatric/Neurological: No Symptoms Reported Hematologic/Lymphatic: No Symptoms Reported Immunological/Allergic: no symptoms reported All Other Systems Reviewed Negative Unless Noted: Yes Past Ikxelxz-Hbyajy-Thbhqx Hx Patient Social History Substance use?: No Seasonal Allergies Seasonal Allergies: No Past Medical History Surgeries: Yes Abdominal (D&C) Respiratory: Yes Asthma Cardiac: No Neurological: No Genitourinary: No Gastrointestinal: No Musculoskeletal: No Endocrine: Yes HEENT: No Cancer: No Psychosocial: Yes Anxiety, Personality Disorder, Schizophrenia, Depression Integumentary: No Blood Disorders: No Family Medical History Patient reports no known family medical history. Diabetes, Psychiatric Problems, Vascular Disease Physical Exam Capillary Refill : Height: 5'3" Weight: 120lbs. oz. 54.495668ny; 25.00 BMI Method: General Appearance: WD/WN, no apparent distress Eyes: Bilateral Eye Normal Inspection HEENT: PERRL/EOMI, normal ENT inspection, pharynx normal Neck: non-tender, full range of motion, supple, normal inspection Respiratory: chest non-tender, lungs clear, normal breath sounds, no respiratory distress, no accessory muscle use Cardiovascular: regular rate, rhythm, no edema, no murmur Gastrointestinal: normal bowel sounds, non tender, soft; No distended, No guarding, No rebound Extremities: normal range of motion, non-tender, normal inspection, no pedal edema, no calf tenderness, normal capillary refill Neurologic/Psychiatric: no motor/sensory deficits, alert, normal mood/affect Skin: normal color, warm/dry Lymphatic: no adenopathy Progress/Results/Core Measures Suspected Sepsis SIRS Temperature: Pulse: Respiratory Rate: Blood Pressure / Mean: Results/Orders My Orders Orders - JULIA PUENTE MD Ketorolac Injection (Toradol Injection) (03/26/21 18:00) Chest 1 View Ap/Pa Only (03/26/21 17:51) Albuterol Inhaler (Albuterol) (03/26/21 17:51) Dexamethasone Injection (Decadron Injec (03/26/21 18:00) Ketorolac Injection (Toradol Injection) (03/26/21 17:53) Medications Given in ED Current Medications Medications Dose Ordered Sig/Angelia Route Start Time Stop Time Status Last Admin Dose Admin Dexamethasone Sodium Phosphate 10 mg ONCE ONCE PO 03/26/21 18:00 03/26/21 18:01 DC 03/26/21 18:05 10 MG Ketorolac Tromethamine 15 mg ONCE ONCE IM 03/26/21 18:00 03/26/21 18:01 DC 03/26/21 18:07 15 MG Vital Signs/I&O Capillary Refill : Progress Note : Progress Note 30-year-old female with above history coming in due to flulike symptoms. ABCs were intact and vitals were stable on presentation. Specifically her oxygen is 100% even with ambulation. Lungs also are clear. Give her albuterol inhaler given she is out of this at home and she typically feels like this makes her feel better. With this potential history of reactive airway disease we will give her some Decadron here. She already had a COVID test done that likely will come back before ours would if we order it. Chest x-ray ordered to assess for pneumonia. Chest x-ray was clear. Patient continued to look good with stable vitals. I believe she is stable for discharge with outpatient follow-up. She was sent home with strict return precautions. Diagnostic Imaging Diagonstic Imaging: Xray Plain Films/CT/US/NM/MRI: chest Comments NAME: ARCELIA LOMELI [facility] REC#: [id number] PT STATUS: REG ER : 1990 PHYSICIAN: JULIA PUENTE MD ADMIT DATE: 03/26/21/ER FS Draft Date of Exam:03/26/21 CHEST 1 VIEW AP/PA ONLY EXAMINATION: Chest 1 view HISTORY: SOB, cough COMPARISON: None available. FINDINGS: Heart size and pulmonary vasculature are normal. The lungs are clear without consolidation, pleural effusion, or pneumothorax. The osseous structures are intact. IMPRESSION: 1. No acute radiographic abnormality in the chest. Dictated on workstation # [id number] Dict: 03/26/211804 Trans: 03/26/211806 [id number] [id number] Interpreted by: KYLEE WILSON DO Electronically signed by: Departure Impression Primary Impression: Person under investigation for COVID-19 Additional Impression: Shortness of breath Disposition: 01 HOME, SELF-CARE Condition: Stable Departure-Patient Inst. Decision time for Depature: 18:13 Referrals: INA ROBERTS MD (PCP/Family) Primary Care Physician Patient Instructions: COVID-19 Overview, Shortness of Breath, Adult ED Add. Discharge Instructions: Your chest x-ray did not show any evidence of pneumonia. Please use the inhaler as needed, we sent a refill to [facility]. We also gave you a steroid which should last several days. I recommend buying a pulse ox at [facility] or any pharmacy and checking it when you are feeling short of breath. If your oxygen is 89% or lower despite sitting down and taking deep breaths for a couple minutes then I recommend coming to the ER. Scripts Albuterol Sulfate (PROAIR HFA) 1 Puff Puff 2 PUFF IH Q4H PRN for shortness of breath for 30 Days, #1 EA 1 PUFF = 90 MCG Prov: JULIA PUENTE MD 03/26/21 Work/School Note: Work Release Form Date Seen in the Emergency Department: Mar 26, 2021 Return to Work: Mar 29, 2021 Restrictions: Return-No Fever (24hrs) JULIA PUENTE MD Mar 26, 2021 18:07
[2021-03-26 18:32] VITALS: BP 133/80
== END 2021-03-26 18:32 | disposition home or self-care (01) ==
LOC: EDUNIT# 17:37 → ER FS 17:38
DX: R06.02 Shortness of breath (principal); R05.1 Acute cough; I10 Essential (primary) hypertension; J45.909 Unspecified asthma, uncomplicated; F41.9 Anxiety disorder, unspecified; F32.A Depression, unspecified; Z91.040 Latex allergy status; Z79.899 Other long term (current) drug therapy; Z20.822 Contact with and (suspected) exposure to COVID-19
CPT/HCPCS: 71045

== ENCOUNTER → 2021-08-02 | Outpatient (CLI) | payer MEDICAID ==
[~2021-08-02] MED LIST changes: +RT-ALBUINH IH; -VENL150C PO; +VENL150C3 PO
--- NOTE | 2021-08-02 11:45 | Diagnostic Imaging Report ---
PROCEDURE: Pelvic comp/transvaginal sonogram. TECHNIQUE: Complete transabdominal and transvaginal pelvic ultrasound was performed. In addition, limited pelvic Doppler was performed. INDICATION: Menorrhagia and excessive frequent menstruation. Uterus is retroverted measuring 6.8 x 3.5 x 6.0 cm. Endometrium is 3 mm in thickness. No myometrial mass is detected. Right ovary measures 3.9 x 1.7 x 2.8 cm and the left ovary measures 3.1 x 1.4 x 1.7 cm. A right ovary does contain multiple follicles. There is a 17 mm x 14 mm simple cyst right ovary. There is a tubular structure in the left adnexa without internal blood flow, perhaps on the basis of hydrosalpinx. There is also some prominent vascularity in the left adnexa which may be owing to pelvic congestion. Small amount of free fluid in the cul-de-sac is noted. IMPRESSION: 1. 17 mm right ovarian cyst. 2. Tubular fluid-filled structure without vascularity in the left adnexa, perhaps on the basis of hydrosalpinx. There is also some prominent vascularity in the left adnexa, suggestive of pelvic congestion. No other abnormalities are seen. Dictated by: Dictated on workstation # [id number]
== END ==
LOC: RAD FS 08:56
PROVIDERS: ATTEND Family Medicine
DX: N83.201 Unspecified ovarian cyst, right side (principal)
CPT/HCPCS: 76830; 76856

== ENCOUNTER → 2021-11-28 | Outpatient (CLI) | payer MEDICAID | END | disposition home or self-care (01) | LOC: PREOP 05:41 | PROVIDERS: ATTEND Obstetrics & Gynecology | DX: Z01.818 Encounter for other preprocedural examination (principal) ==

== ENCOUNTER 2021-12-27 05:30 | Outpatient (CLI) | payer MEDICAID ==
[~2021-12-27] VITALS: Ht 157.5 cm; Wt 51.7 kg
[~2021-12-27 05:30] MED LIST changes: +ALBU8.5H6 IH; -RT-ALBUINH IH
[2021-12-27] MEDS ORDERED: LISI10TA25 PO (17:06)
[2021-12-27] MEDS ORDERED: BUSP10TA95 PO (17:06)
[2021-12-27] MEDS ORDERED: HYDR-700 PO (17:06)
[2021-12-27] MEDS ORDERED: MEDR150D8 IM (17:06)
== END 2021-12-27 17:13 | disposition home or self-care (01) ==
LOC: PREOP 05:30
PROVIDERS: ATTEND Obstetrics & Gynecology
DX: Z01.818 Encounter for other preprocedural examination (principal)

== ENCOUNTER 2022-01-03 12:11 | Day surgery (SDC) | payer MEDICAID ==
[~2022-01-03] VITALS: Ht 157.5 cm; Wt 51.7 kg
[2022-01-03] VITALS (10 sets, daily range): BP systolic 123–154; BP diastolic 73–107
--- NOTE | 2022-01-03 08:04 | Progress Note-Pre Operative ---
Pre-Operative Progress Note Date of Available H&P: Jan 03, 2022 Date H&P Reviewed: Jan 03, 2022 Time H&P Reviewed: 14:00 History & Physical: H&P Reviewed, No changes noted Changes from last HP Interim note today's date On chart Pre-Operative Diagnosis: Chronic pelvic pain/menorrhagia/uterine fibroids GHANSHYAM PORTER MD Jan 03, 2022 08:04
--- NOTE | 2022-01-03 08:05 | Progress Note-Post Operative ---
Post-Operative Progess Note Surgeon (s)/Timber Sizer (s) Surgeon GHANSHYAM PORTER MD Timber Sizer: Ellie PEREZ Pre-Operative Diagnosis Chronic pelvic pain/menorrhagia/uterine fibroids Post-Operative Diagnosis Same with Appendiceal mass and withpathology pending Procedure & Operative Findings Date of Procedure 01/03/22 Procedure Performed/Findings Total laparoscopic hysterectomy with bilateral salpingectomyAnd laparoscopic appendectomy Anesthesia Type General anesthesia Estimated Blood Loss Estimated blood loss (mL): Minimal Specimens/Packing Specimens Removed Uterus and fallopian tubesAnd appendix GHANSHYAM PORTER MD Jan 03, 2022 08:05
--- NOTE | 2022-01-03 08:11 | Discharge Inst-Surgical ---
Discharge Inst-Surgical Depart Medication/Instructions New, Converted or Re-Newed RX: Transmitted to Pharmacy Consults/Follow Up Patient Instructions: As directed Orders & Referrals Follow Up Appt: Return to clinic in 1 week for suture removal Call to make follow up appt. for patient in 4 weeks. Activity: Rest for 24 hours, than as tolerated. Wound Care: May remove Band-Aid tomorrow. Replace as desired. Keep incisions clean and dry. Wash daily with soap and water. Diet: As tolerated- shower or tub bathe as desired. No driving for 24 hours, no alcoholic beverages for 24 hours, and nothing per vagina (no tampons, douching, or intercourse) for 8 weeks. Patient to return to the clinic as soon as possible for: Temperature greater than 101F, Severe Pain, Foul discharge from incision or vagina, Excessive Bleeding (more than a period). Activity Activity as Tolerated: No Diet Discharge Diet: No Restrictions GHANSHYAM PORTER MD Jan 03, 2022 08:11
[~2022-01-03 12:11] MED LIST changes: +BUSP10TA95 PO; +DOCU-143 PO; +HYDR-700 PO; +IBUP-1780 PO; +LISI10TA25 PO; +MEDR150D8 IM; +OXYC-199 PO
[2022-01-03] MEDS: LACTATED RINGERS 1,000 ML IV PRN ×2 (12:50→16:14)
[2022-01-03 13:04] LABS: BASOPHILS # (AUTO) 0.1 10^3/uL (0.0-0.1); BASOPHILS % (AUTO) 1 % (0-10); EOSINOPHILS # (AUTO) 0.2 10^3/uL (0.0-0.3); EOSINOPHILS % (AUTO) 3 % (0-10); HEMATOCRIT 39 % (35-52); HEMOGLOBIN 13.4 g/dL (11.5-16.0); LYMPHOCYTES # (AUTO) 2.4 10^3/uL (1.0-4.0); LYMPHOCYTES % (AUTO) 36 % (12-44); MEAN CORPUSCULAR HEMOGLOBIN 33 pg (25-34); MEAN CORPUSCULAR HGB CONC 35 g/dL (32-36); MEAN CORPUSCULAR VOLUME 94 fL (80-99); MEAN PLATELET VOLUME 9.1 fL (9.0-12.2); MONOCYTES # (AUTO) 0.4 10^3/uL (0.0-1.0); MONOCYTES % (AUTO) 6 % (0-12); NEUTROPHILS # (AUTO) 3.5 10^3/uL (1.8-7.8); NEUTROPHILS % (AUTO) 53 % (42-75); PLATELET COUNT 413 10^3/uL (130-400); WHITE BLOOD COUNT 6.6 10^3/uL (4.3-11.0)
[2022-01-03] MEDS ORDERED: ROCURONIUM 10 MG/ML 5 ML SYRINGE IV ONE (13:51)
[2022-01-03] MEDS ORDERED: proPOfol 200 MG/20 ML (DIPRIVAN) VIAL IV ONE (13:51)
[2022-01-03] MEDS ORDERED: SEVOFLURANE (ULTANE) 15 ML INHAL SOLN ONE ×3 (13:51→16:11)
[2022-01-03] MEDS ORDERED: fentaNYL INJ 100 MCG/2 ML AMP ONE (13:51)
[2022-01-03] MEDS ORDERED: ONDANSETRON 4 MG/2 ML (SDV) Z0FRAN ONE (13:51)
[2022-01-03] MEDS ORDERED: LIDOCAINE PF 2% 5 ML (XYLOCAINE) VIAL ONE (13:51)
[2022-01-03] MEDS ORDERED: MIDAZOLAM 2 MG/2 ML (VERSED) VIAL ONE (13:51)
[2022-01-03] MEDS ORDERED: NEOSTIGMINE (BLOXIVERZ ) 1 MG/1ML 10 ML VIAL ONE ×2 (13:53→15:53)
[2022-01-03] MEDS ORDERED: GLYCOPYRROLATE 0.2 MG/ML (ROBINUL) 2 ML VIAL ONE ×2 (13:53→15:52)
[2022-01-03] MEDS ORDERED: KETOROLAC 30 MG/ML VIAL ONE ×2 (13:54→16:08)
[2022-01-03] MEDS ORDERED: LIDOCAINE/EPI 1%-1:100,000 (XYLOCAINE) 10 ML ONE (14:11)
[2022-01-03] MEDS ORDERED: morphine INJ 10 MG/ML 1ML (SYR OR VIAL) ONE (15:12)
[2022-01-03] MEDS ORDERED: ONDANSETRON 4 MG/2 ML (SDV) Z0FRAN IVP PRN (16:15)
[2022-01-03] MEDS ORDERED: MEPERIDINE (DEMEROL) INJ 50 MG/ML IVP ONE (16:15)
[2022-01-03] MEDS: KETOROLAC 30 MG/ML VIAL IV SCH ×2 (16:15→22:19)
[2022-01-03] MEDS ORDERED: fentaNYL INJ 100 MCG/2 ML AMP IVP ONE (16:15)
[2022-01-03] MEDS ORDERED: morphine INJ 10 MG/ML 1ML (SYR OR VIAL) IVP ONE (16:15)
[2022-01-03] MEDS ORDERED: MEPERIDINE (DEMEROL) INJ 100 MG/ML IVP PRN (16:15)
[2022-01-03] MEDS ORDERED: MEPERIDINE (DEMEROL) INJ 50 MG/ML ONE (16:19)
[2022-01-03] MEDS: ONDANSETRON 4 MG/2 ML (SDV) Z0FRAN IVP PRN ×2 (17:25→17:26)
[2022-01-03] MEDS: oxyCODONE/APAP 5/325MG (PERCOCET 5) TABLET PO PRN (18:25)
[2022-01-03] MEDS: D5 LR IV SOLUTION 1,000 ML IV SCH (18:32)
[2022-01-03] MEDS: MEPERIDINE (DEMEROL) INJ 100 MG/ML IM PRN (20:41)
[2022-01-03] MEDS: PROMETHAZINE INJ 25 MG/ML (PHENERGAN) AMP IM PRN (20:41)
[2022-01-03] MEDS: DOCUSATE SODIUM 100 MG (COLACE) CAP PO SCH (22:19)
[2022-01-04 00:10] VITALS: BP 122/75
[2022-01-04] MEDS: oxyCODONE/APAP 5/325MG (PERCOCET 5) TABLET PO PRN ×3 (00:11→08:24)
[2022-01-04] MEDS: D5 LR IV SOLUTION 1,000 ML IV SCH ×2 (00:28→08:38)
--- NOTE | 2022-01-04 02:59 | OPERATIVE REPORT ---
DATE OF SERVICE: 01/03/2022 PREOPERATIVE DIAGNOSES: Chronic pelvic pain, menorrhagia and uterine fibroids. POSTOPERATIVE DIAGNOSES: Chronic pelvic pain, menorrhagia and uterine fibroids with appendiceal mass. PROCEDURE: Total laparoscopic hysterectomy with bilateral salpingectomies as well as laparoscopic appendectomy. DESCRIPTION OF PROCEDURE: With the patient in the supine position, under satisfactory general anesthesia, she was repositioned in the dorsal lithotomy position in the [facility] and prepped and draped in the usual fashion for abdominal and vaginal surgery using da Luis Daniel assistance. Weighted speculum was placed in the posterior fornix of the vagina, cervix exposed and grasped anteriorly with a single tooth tenaculum. The uterus was sounded to 9.5 cm using a sound. The cervix was then serially dilated with Onofre dilators to accommodate a ERNESTINA II manipulator, which was placed using a 6 mm x 8 cm uterine probe and a 25 mm colpotomy ring. Sutures of #1 Vicryl were placed at 3 and 9 o'clock position of the cervix to affix the uterus to the manipulator. Tenaculum and speculum were removed. Angel catheter was placed in the urinary bladder. The patient was brought in low dorsal lithotomy position. A 12 mm incision was made 10 cm superior to the umbilicus. Veress needle was placed through that incision into the abdominal cavity. Correct placement was confirmed with a water drop test. The abdomen insufflated with 2.4 liters of carbon dioxide. The Veress needle was removed and a 12 mm Optiview laparoscopic port was placed through the incision. The abdominal wall was transilluminated and 8 mm ports were placed through incisions and both sides 8 cm lateral to the umbilicus. The patient was placed in Trendelenburg allowing the bowel was put up out of the pelvis. The da Luis Daniel column was advanced on the patient, docked to the operative instruments were placed in right and left lateral ports and I retired to the da Luis Daniel console. At the console using the vessel sealer on the right and the bipolar fenestrated grasper on the left, the pelvis was examined. Both ovaries were normal. The uterus was quite large bulky and mottled in appearance consistent with adenomyosis and potentially uterine fibroids. The fallopian tubes were normal in appearance. The ovaries were normal in appearance. Both ureters were seen to peristalse. Laparoscope was rotated. The appendix was identified. It was a vermiform appendix with a nodular lesion at the distal tip. Decision was made to go ahead with appendectomy concurrent with the hysterectomy. Attention was turned back to the pelvis. Right fallopian tube was grasped and elevated. The mesosalpinx was clamped, cauterized, and divided across to the utero-ovarian pedicle with the vessel sealer. Vessel sealer was then used to divide the uteroovarian pedicle and the round ligament and the broad ligament dissection was carried down onto the cardinal ligament on the left, thus allowing for removal of the fallopian tube eventually with the uterus. The same procedure was performed on the left with the same result. Both ovaries were conserved. The anterior lower uterine segment peritoneum was divided using monopolar benson in place of the vessel sealer. The anterior peritoneum was divided. The bladder was dissected down off the lower uterine segment. A colpotomy incision was started. At the 12 o'clock position on to the colpotomy ring, the incision was continued circumferentially until the entire colpotomy ring was exposed. The uterus with tubes still attached was extracted through the vagina. The vaginal cuff was closed with a single suture of V-Loc barbed suture starting from the right angle and continuing all the way across to the left angle, taking care to ensure inclusion of the uterine vessel pedicles bilaterally. Hemostasis was complete. Both ureters were still seen the peristalsing were normal in caliber. Attention was then turned to the appendix. The da Luis Daniel ports were left in place, but the column was undocked and removed from the patient. Using the camera on the right port, an Endo-BLANCHE in the middle port and a grasper in the left port, the appendix was grasped and elevated. Endo-BLANCHE was placed across the base of the appendix. The mesoappendix had been divided with the vessel sealer prior to removal of that instrument. The Endo-BLANCHE was fired the appendix from its attachment at the cecum. The Endobag was placed through the umbilical port. The appendix was placed in the bag and brought out through the umbilical port. The pelvis was copiously irrigated as was the stump of the appendix. The stump of the appendix was then treated with several drops of Betadine solution. Hemostasis was complete. No pathology remained. It was abnormal. The abdomen was evacuated of the insufflated gas in the process of removing the ports. The skin incisions were closed with nylon sutures. The fascia of the supraumbilical incision was closed with a [id number] suture of 2-0 Vicryl. Speculum was replaced in the vagina. The vaginal cuff was examined. It was completely reapproximated and completely hemostatic. Sponge and needle counts were correct. Hemostasis was assured. Blood loss was between 1500 mL. The patient tolerated the procedure well and was uneventfully awakened from her general anesthesia and transferred to recovery room in stable condition. Job ID: [id number] DocumentID: [id number] Dictated Date: 01/03/2022 16:01:55 Physician Underwriter Date: 01/04/2022 02:57:00 Dictated By: GHANSHYAM PORTER MD
[2022-01-04 04:22] VITALS: BP 127/72
[2022-01-04] MEDS: KETOROLAC 30 MG/ML VIAL IV SCH (04:48)
[2022-01-04] MEDS: PROMETHAZINE INJ 25 MG/ML (PHENERGAN) AMP IM PRN (05:16)
[2022-01-04] MEDS: MEPERIDINE (DEMEROL) INJ 100 MG/ML IM PRN (05:16)
--- NOTE | 2022-01-04 07:03 | Progress Note ---
Standard Progress Note Progress Notes/Assess & Plan Date Seen by a Provider: Jan 04, 2022 Time Seen by a Provider: 07:01 Progress/Assessment & Plan This patient is without complaint. She is ambulating, voiding, tolerating oral intake well and has good pain control. Vital Signs Date Time Temp Pulse Resp B/P (MAP) Pulse Ox O2 Delivery O2 Flow Rate FiO2 01/04/22 04:22 36.9 84 20 127/72 (90) 95 Room Air 01/04/22 00:10 36.9 99 16 122/75 (91) 99 Room Air 01/03/22 20:40 36.7 85 18 127/73 (91) 96 Room Air 01/03/22 20:04 Room Air 01/03/22 17:25 36.0 60 18 139/91 (107) 99 Room Air 01/03/22 17:00 Room Air 01/03/22 17:00 36.7 12 142/97 (112) 95 OxyMask 01/03/22 16:50 12 142/90 (107) 100 OxyMask 3.00 01/03/22 16:45 OxyMask 3.00 01/03/22 16:40 12 149/91 (110) 100 OxyMask 3.00 01/03/22 16:30 12 152/95 (114) 100 OxyMask 6.00 01/03/22 16:30 OxyMask 6 01/03/22 16:20 16 154/107 (123) 100 OxyMask 6.00 01/03/22 16:15 OxyMask 6 01/03/22 16:10 16 150/99 (116) 100 OxyMask 6.00 01/03/22 16:03 OxyMask 6 01/03/22 16:03 36.3 16 134/94 (107) 100 OxyMask 8 01/03/22 12:48 36.7 73 18 123/82 (96) 99 Room Air I & O 01/04/22 07:00 Intake Total 2650 ml Output Total 1405 ml Balance 1245 ml Vital signs are stable. Patient is afebrile. The abdomen is benign. The surgical incisions are clean dry and intact. Extremities show no clubbing or cyanosis. There is no Homans' sign. Assessment and plan Postoperative day #1 doing well. Plan is for routine convalescent care with discharge home and follow-up in clinic Final Diagnosis Menometrorrhagia GHANSHYAM OPRTER MD Jan 04, 2022 07:03
--- NOTE | 2022-01-04 07:36 | Anesthesia-General Post-Op ---
General Patient Condition Mental Status/LOC: Same as Preop Cardiovascular: Satisfactory Nausea/Vomiting: Absent Respiratory: Satisfactory Pain: Controlled Complications: Absent Post Op Complications Complications None Follow Up Care/Instructions Patient Instructions None needed. Anesthesia/Patient Condition Patient Condition Patient is doing well, no complaints, stable vital signs, no apparent adverse anesthesia problems. No complications reported per nursing. ANGIE QUINONES CRNA Jan 04, 2022 07:36
[2022-01-04 08:00] VITALS: BP 123/73
[2022-01-04] MEDS: DOCUSATE SODIUM 100 MG (COLACE) CAP PO SCH (08:26)
[2022-01-04 08:43] VITALS: BP 123/73
[2022-01-04] MEDS ORDERED: DOCUSATE SODIUM 100 MG (COLACE) CAP PO SCH (09:00)
[2022-01-04] MEDS ORDERED: IBUPROFEN 800 MG (MOTRIN) TAB PO SCH (16:15)
== END 2022-01-04 08:35 | disposition home or self-care (01) ==
LOC: SDC 12:11 → WS 17:27 → SDC 01-04 08:35
PROVIDERS: ATTEND Obstetrics & Gynecology
DX: D25.1 Intramural leiomyoma of uterus (principal); N80.30 Endometriosis of pelvic peritoneum, unspecified; N83.8 Other noninflammatory disorders of ovary, fallopian tube and broad ligament; R59.0 Localized enlarged lymph nodes; K38.8 Other specified diseases of appendix; F17.210 Nicotine dependence, cigarettes, uncomplicated
CPT/HCPCS: 36415; 84703; 85025; 87081; 94664

== ENCOUNTER 2022-05-12 21:54 | Emergency (ER) | payer MEDICAID ==
[~2022-05-12] VITALS: Ht 157.4 cm; Wt 52.1 kg
[2022-05-12] MEDS ORDERED: diphenhydrAMINE 50 MG/ML INJ (BENADRYL) IVP STA (22:11)
[2022-05-12] MEDS ORDERED: fentaNYL INJ 100 MCG/2 ML AMP IVP STA (22:11)
[2022-05-12] MEDS ORDERED: NS IV 1000 ML 1,000 ML IV STA (22:11)
[2022-05-12] MEDS ORDERED: DROPERIDOL 5 MG/2 ML (INAPSINE) ED ONLY! IV STA (22:11)
[2022-05-12] MEDS ORDERED: PANTOPRAZOLE 40 MG (PROTONIX) VIAL IV STA (22:11)
[2022-05-12] MEDS ORDERED: DICYCLOMINE 10 MG/ML (BENTYL) 2 ML AMP IM STA (22:11)
[2022-05-12 22:17] LABS: BASOPHILS % (AUTO) 1 % (0-10); EOSINOPHILS # (AUTO) 0.2 10^3/uL (0.0-0.3); EOSINOPHILS % (AUTO) 4 % (0-10); HEMATOCRIT 39 % (35-52); HEMOGLOBIN 13.6 g/dL (11.5-16.0); LYMPHOCYTES # (AUTO) 2.2 X 10^3 (1.0-4.0); LYMPHOCYTES % (AUTO) 39 % (12-44); MEAN CORPUSCULAR HEMOGLOBIN 33 pg (25-34); MEAN CORPUSCULAR HGB CONC 35 g/dL (32-36); MEAN CORPUSCULAR VOLUME 94 fL (80-99); MEAN PLATELET VOLUME 9.8 fL (9.0-12.2); MONOCYTES # (AUTO) 0.4 X 10^3 (0.0-1.0); MONOCYTES % (AUTO) 7 % (0-12); NEUTROPHILS # (AUTO) 2.8 X 10^3 (1.8-7.8); NEUTROPHILS % (AUTO) 50 % (42-75); PLATELET COUNT 222 10^3/uL (130-400); WHITE BLOOD COUNT 5.7 10^3/uL (4.3-11.0)
--- NOTE | 2022-05-12 22:21 | ED Abdominal Pain ---
General Chief Complaint: Abdominal/GI Problems Stated Complaint: ABD PAIN Source of Information: Patient, EMS, Old Records (Hysterectomy with appendectomy December [address] [facility] [address] Flood, OB/Gynecology) History of Present Illness Date Seen by Provider: May 12, 2022 Time Seen by Provider: 21:54 Initial Comments 31 yo female presenting by [facility] ambulance service with complaints of sudden onset LUQ abdominal pain with nausea and dry heaves. She reports having similar pain in the past with Lupus and Irritable bowel. she is screaming and crying out almost constantly and yelling that it hurts. She received 100 mcg of IV Fentanyl from EMS and she reports it helped a little but not very much. She states she had a normal bowel movement earlier today. She denies any pain or burning with urination. From review of her medical chart she had hysterectomy with bilateral salpingo-oophorectomy and appendectomy in December [address] PORTER OB psychiatry physician. She has a history of lupus, irritable bowel, chronic pelvic pain. She denies doing anything prior to onset of pain and symptoms tonight. She states she has had some similar pain in the past due to lupus and irritable bowel but it has been many years ago she cannot remember if there are medicines that had helped her at that time. She denies fever, chills, chest pain, cough, diarrhea, blood in her stool, blood in her urine. Timing/Duration: 1-3 Hours (Reports onset approximately 90 minutes prior to arrival in the ED) Severity/Quality: Severe, Cramping, Sharp Location: LUQ Radiation: No Radiation Activities at Onset: None Modifying Factors: Worsens With Movement, Worsens With Palpation Associated Symptoms: No Back Pain, No Chest Pain, No Diaphoresis, No Fever/Chills, No Fatigue, No Headache, No Heartburn; Nausea/Vomiting (Dry heaves); No Shortness of Air, No Swelling/Mass in Abdomen, No Syncope, No Weakness Allergies and Home Medications Allergies Coded Allergies: cephalexin (Verified Allergy, Mild, RASH, 12/27/21) latex (Verified Allergy, Mild, RASH, 12/27/21) amoxicillin (Verified Allergy, Unknown, Vomiting/RASH, 12/27/21) Patient Home Medication List Home Medication List Reviewed: Yes Albuterol Sulfate (Ventolin Hfa) 1 Puff Puff, 2 PUFF IH Q4H PRN for shortness of breath Prescribed by: JULIA PUENTE on 03/26/21 180 Buspirone HCl (Buspirone HCl) 10 Mg Tablet, 10 MG PO TID, (Reported) Entered as Reported by: INA ABARCA on 12/27/21 170 Dicyclomine HCl (Dicyclomine HCl) 10 Mg Capsule, 10 MG PO Q6H PRN for abdominal pain/cramping Prescribed by: ADE GREGORIO on 05/12/222326 Docusate Sodium (Colace) 100 Mg Capsule, 100 MG PO BID Prescribed by: GHANSHYAM KAUFMAN on 01/03/22 08 Hydrocodone/Acetaminophen (Hydrocodone-Acetamin 5-325 mg) 5 Mg-325 Mg Tablet, 1 TAB PO Q6H PRN for PAIN SEVERE Prescribed by: ADE GREGORIO on 05/12/22 232 Hydroxyzine HCl (Hydroxyzine HCl) 25 Mg Tablet, 25 MG PO TID, (Reported) Entered as Reported by: INA ABARCA on 12/27/21 170 Ibuprofen (Ibuprofen) 800 Mg Tablet, 800 MG PO Q6H PRN for PAIN Prescribed by: GHANSHYAM KAUFMAN on 01/03/22 0810 Lisinopril (Lisinopril) 10 Mg Tablet, 10 MG PO DAILY, (Reported) Entered as Reported by: INA ABARCA on 12/27/21 170 Ondansetron (Ondansetron Odt) 4 Mg Tab.rapdis, 4 MG PO Q6H PRN for NAUSEA/V OMITING Prescribed by: ADE GREGORIO on 05/12/222326 Oxycodone HCl/Acetaminophen (Percocet 5-325 mg Tablet) 5 Mg-325 Mg Tablet, 1 TAB PO Q6H PRN for PAIN-MODERATE Prescribed by: GHANSHYAM KAUFMAN on 01/03/22 0810 Review of Systems Review of Systems Constitutional: No chills, No fever EENTM: No Symptoms Reported Respiratory: No Symptoms Reported Cardiovascular: No Symptoms Reported Gastrointestinal: See HPI Genitourinary: No Symptoms Reported Musculoskeletal: no symptoms reported Skin: No rash Psychiatric/Neurological: Anxiety Past [id number]-[id number] Hx Patient Social History Tobacco Use?: Yes Tobacco type used: Cigarettes Smoking Status: Current Everyday Smoker Substance use?: No Alcohol Use?: No Pt feels they are or have been: No Seasonal Allergies Seasonal Allergies: Yes Past Medical History Surgery/Hospitalization HX: Lupus, HTN, Appy, Hysterectomy Surgeries: Yes (D & C) Abdominal Respiratory: Yes (ALLERY INDUCED) Asthma Currently Using CPAP: No Currently Using BIPAP: No Cardiac: Yes Hypertension Neurological: No Female Reproductive Disorders: Menstrual Problems, Ovarian Cyst Genitourinary: No Gastrointestinal: No Musculoskeletal: No Endocrine: No HEENT: No Cancer: No Psychosocial: Yes Anxiety, Bipolar, Schizophrenia, Depression Integumentary: No Blood Disorders: No Family Medical History Patient reports no known family medical history. Diabetes, Psychiatric Problems, Vascular Disease Physical Exam Vital Signs Vital Signs - First Documented 05/12/22 22:06 Temp 36.6 Pulse 76 Resp 18 B/P (MAP) 165/100 (121) Pulse Ox 100 O2 Delivery Room Air Capillary Refill : Height/Weight/BMI Height: 5'3" Weight: 120lbs. oz. 54.298217tn; 20.84 BMI Method: General Appearance: WD/WN, severe distress (Constantly screaming and crying out complaining of pain) HEENT: PERRL/EOMI, pharynx normal Neck: non-tender, full range of motion, supple, normal inspection Respiratory: chest non-tender, lungs clear, normal breath sounds, no respiratory distress, no accessory muscle use Cardiovascular: normal peripheral pulses, regular rate, rhythm Gastrointestinal: normal bowel sounds, soft, no pulsatile mass; No distended; guarding; No rebound; tenderness (Left upper quadrant abdominal pain with palpation.) Rectal: deferred Extremities: normal range of motion, non-tender, normal capillary refill Back: no CVA tenderness Neurologic/Psychiatric: alert, oriented x 3 Skin: normal color, warm/dry Images 1 - Tender to palpation and guarding in the left upper quadrant Progress/Results/Core Measures Results/Orders Lab Results Laboratory Tests Test 05/12/22 22:10 05/12/22 22:40 Range/Units White Blood Count 5.7 4.3-11.0 10^3/uL Red Blood Count 4.16 3.80-5.11 10^6/uL Hemoglobin 13.6 11.5-16.0 g/dL Hematocrit 39 35-52 % Mean Corpuscular Volume 94 80-99 fL Mean Corpuscular Hemoglobin 33 25-34 pg Mean Corpuscular Hemoglobin Concent 35 32-36 g/dL Red Cell Distribution Width 12.8 10.0-14.5 % Platelet Count 222 130-400 10^3/uL Mean Platelet Volume 9.8 9.0-12.2 fL Immature Granulocyte % (Auto) 0 % Neutrophils (%) (Auto) 50 42-75 % Lymphocytes (%) (Auto) 39 12-44 % Monocytes (%) (Auto) 7 0-12 % Eosinophils (%) (Auto) 4 0-10 % Basophils (%) (Auto) 1 0-10 % Neutrophils # (Auto) 2.8 1.8-7.8 X 10^3 Lymphocytes # (Auto) 2.2 1.0-4.0 X 10^3 Monocytes # (Auto) 0.4 0.0-1.0 X 10^3 Eosinophils # (Auto) 0.2 0.0-0.3 10^3/uL Basophils # (Auto) 0.0 0.0-0.1 10^3/uL Immature Granulocyte # (Auto) 0.0 0.0-0.1 10^3/uL Sodium Level 138 135-145 MMOL/L Potassium Level 3.4 L 3.6-5.0 MMOL/L Chloride Level 102 98-107 MMOL/L Carbon Dioxide Level 23 21-32 MMOL/L Anion Gap 13 5-14 MMOL/L Blood Urea Nitrogen 8 7-18 MG/DL Creatinine 0.66 0.60-1.30 MG/DL Estimat Glomerular Filtration Rate 119 BUN/Creatinine Ratio 12 Glucose Level 91 70-105 MG/DL Calcium Level 9.8 8.5-10.1 MG/DL Corrected Calcium 9.5 8.5-10.1 MG/DL Total Bilirubin 0.2 0.1-1.0 MG/DL Aspartate Amino Transf (AST/SGOT) 21 5-34 U/L Alanine Aminotransferase (ALT/SGPT) 16 0-55 U/L Alkaline Phosphatase 53 40-136 U/L C-Reactive Protein < 0.30 <0.50 MG/DL Total Protein 6.8 6.4-8.2 GM/DL Albumin 4.4 3.2-4.5 GM/DL Lipase 19 8-78 U/L Salicylates Level < 0.3 L 5.0-20.0 MG/DL Acetaminophen Level < 10 L 10-30 UG/ML Serum Alcohol 18 H <10 MG/DL Urine Color YELLOW Urine Clarity CLEAR Urine pH 7.5 5-9 Urine Specific Rosine 1.015 L 1.016-1.022 Urine Protein NEGATIVE NEGATIVE Urine Glucose (UA) NEGATIVE NEGATIVE Urine Ketones NEGATIVE NEGATIVE Urine Nitrite NEGATIVE NEGATIVE Urine Bilirubin NEGATIVE NEGATIVE Urine Urobilinogen 0.2 < = 1.0 MG/DL Urine Leukocyte Esterase NEGATIVE NEGATIVE Urine RBC (Auto) 1+ H NEGATIVE Urine RBC 5-10 H /HPF Urine WBC NONE /HPF Urine Squamous Epithelial Cells 10-25 H /HPF Urine Crystals NONE /LPF Urine Bacteria TRACE /HPF Urine Casts NONE /LPF Urine Mucus NEGATIVE /LPF Urine Culture Indicated NO Urine Opiates Screen NEGATIVE NEGATIVE Urine Oxycodone Screen NEGATIVE NEGATIVE Urine Methadone Screen NEGATIVE NEGATIVE Urine Propoxyphene Screen NEGATIVE NEGATIVE Urine Barbiturates Screen NEGATIVE NEGATIVE Ur Tricyclic Antidepressants Screen NEGATIVE NEGATIVE Urine Phencyclidine Screen NEGATIVE NEGATIVE Urine Amphetamines Screen NEGATIVE NEGATIVE Urine Methamphetamines Screen NEGATIVE NEGATIVE Urine Benzodiazepines Screen NEGATIVE NEGATIVE Urine Cocaine Screen NEGATIVE NEGATIVE Urine Cannabinoids Screen NEGATIVE NEGATIVE My Orders Orders - ADE GREGORIO MD Ua Culture If Indicated (05/12/22 22:11) Cbc With Automated Diff (05/12/22 22:11) Comprehensive Metabolic Panel (05/12/22 22:11) Alcohol (05/12/22 22:11) Drug Screen Stat (Urine) (05/12/22 22:11) Acetaminophen (05/12/22 22:11) Salicylate (05/12/22 22:11) Ed Iv/Invasive Line Start (05/12/22 22:11) Monitor-Rhythm Ecg Trace Only (05/12/22 22:11) Lipase (05/12/22 22:11) Crp Fs (05/12/22 22:11) Ct Abdomen/Pelvis W (05/12/22 22:11) Ns Iv 1000 Ml (Sodium Chloride 0.9%) (05/12/22 22:11) Pantoprazole Injection (Protonix Injecti (05/12/22 22:11) Diphenhydramine Injection (Benadryl Inje (05/12/22 22:11) Fentanyl Inj (Sublimaze Injection) (05/12/22 22:11) Dicyclomine Injection (Bentyl Injection) (05/12/22 22:11) Droperidol Inj (Ed Only) (Inapsine Inj ( (05/12/22 22:11) Iohexol Injection (Omnipaque 350 Mg/Ml 1 (05/12/22 22:30) Di Iv Start (Assessment) .IV start (05/12/22 22:16) Received Contrast (Hold Metformin- Contr (05/12/22 22:30) Ns (Ivpb) (Sodium Chloride 0.9% Ivpb Bag (05/12/22 22:30) Dexamethasone Injection (Decadron Inje (05/12/22 23:17) Methylprednisolone Acetate Inj (Depo-Med (05/12/22 23:17) Rx-Hydrocodone/Apap 5-325 Mg (Rx-Vicodin (05/12/22 23:30) Rx-Dicyclomine Capsule (Rx-Bentyl Capsul (05/12/22 23:30) Rx-Ondansetron Po (Rx-Zofran Po) (05/12/22 23:30) Medications Given in ED Current Medications Medications Dose Ordered Sig/Angelia Route Start Time Stop Time Status Last Admin Dose Admin Acetaminophen/ Hydrocodone Bitart 1 ea Q6H PRN PO 05/12/22 23:30 05/12/22 23:41 DC 05/12/22 23:36 1 EA Dicyclomine HCl 10 mg Q6H PRN PO 05/12/22 23:30 05/12/22 23:41 DC 05/12/22 23:36 10 MG Iohexol 75 ml ONCE ONCE IV 05/12/22 22:30 05/12/22 22:31 DC 05/12/22 22:33 75 ML Ondansetron HCl 4 mg Q6H PRN PO 05/12/22 23:30 05/12/22 23:41 DC 05/12/22 23:36 4 MG Sodium Chloride 100 ml ONCE ONCE IV 05/12/22 22:30 05/12/22 22:31 DC 05/12/22 22:33 100 ML Vital Signs/I&O 05/12/22 05/12/22 22:06 23:39 Temp 36.6 Pulse 76 76 Resp 18 16 B/P (MAP) 165/100 (121) 155/74 Pulse Ox 100 99 O2 Delivery Room Air Room Air 05/13/22 00:00 Intake Total 1000 ml Balance 1000 ml Progress Progress Note #1: Progress Note Potential diagnosis of gastritis, peptic ulcer disease, colitis, diverticulitis, small bowel obstruction, anxiety, drug abuse, abdominal mass, pancreatitis. Obtain blood for complete blood count, comprehensive metabolic profile, lipase, alcohol, salicylate, acetaminophen, urinalysis, urine drug screen. Patient has peripheral IV started by EMS. Administer normal saline 1 L IV fluid bolus for hydration, fentanyl 100 mcg IV for pain, Benadryl 25 mg IV for pain and nausea. Droperidol 2.5 mg IV for nausea and abdominal pain, dicyclomine 20 mg IM x1 for abdominal cramping and pain. Pantoprazole 40 mg IV for gastritis. Obtain CT scan of the abdomen pelvis with IV contrast to evaluate for possible ob struction, blockage, diverticulitis, colitis, perforated bowel. Progress Note #2: Time: 22:53 Progress Note On my review for complete blood count she had no elevation of her white blood cells to indicate a severe infection and her hemoglobin was not anemic. Her comprehensive metabolic profile and lipase were normal. She did not have elevated lipase for pancreatitis. Her renal function, hepatic function, general electrolytes that all appeared stable without acute significant abnormality to account for her symptoms and pain. Her alcohol level was slightly elevated at 18. Her salicylate acetaminophen and urine drug screen were all negative. Her urinalysis had some blood but there was no bacteria or nitrites or leukocyte esterase to indicate UTI. On my personal review and opinion on the CT scan of the abdomen pelvis with IV contrast I did not appreciate any acute obstruction or blockage and no perforation. Patient was much more calm after receiving medications here in the ED. She has had no further dry heaves and was no longer constantly crying out. Progress Note #3: Time: 23:02 Progress Note I reviewed the radiologist report from stat rad that showed equivocal segmental wall thickening of portions of the colon but may reflect artifact related to underdistention. Correlate clinically with patient to exclude colitis. As patient is not having elevation in her CRP and her labs all looked okay at this is less likely to be colitis. However with her history of lupus and her overall bowel well administer a dose of dexamethasone IV and Depo-Medrol IM to try and help from the inflammation and lupus standpoint. Will prescribe Bentyl or dicyclomine 10 mg p.o. every 6 hours as needed abdominal pain and cramping, Zofran 4 mg ODT every 6 hours as needed nausea and vomiting, hydrocodone 5/325 mg 1 every 6 hours as needed for severe pain. Encourage fluids and hydration. Follow-up with clinic for continued concerns. Try to rest in a cool dark room. Follow a liquid diet for the next 24 hours and advance as tolerated. When reviewing results with the patient she was much more comfortable and was resting in the room. She states that her pain is a 5 for 6 out of 10. Advised that we did not find any reason for emergent surgical intervention or admission to the hospital. Especially with her symptoms improved with medicine will have her continue the medicine for the next several days and check back through the clinic if not improving or having more concerns. Diagnostic Imaging Diagonstic Imaging: CT Plain Films/CT/US/NM/MRI: abdomen, pelvis Comments CT scan of the abdomen and pelvis with IV contrast Impression: Equivocal segmental wall thickening of portions of the colon may reflect artifact related to underdistention. Correlate clinically however to exclude colitis. Read by radiologist Dr. Taqueria Pierre MD at [id number] and faxed at [phone] Reviewed: Reviewed by Me (I reviewed the radiologist report at [id number]) Departure Impression Primary Impression: Left upper quadrant abdominal pain Additional Impressions: Abdominal cramping in left upper quadrant Colitis Disposition: 01 HOME, SELF-CARE Condition: Improved Departure-Patient Inst. Decision time for Depature: 23:25 Referrals: INA ROBERTS MD (PCP/Family) Primary Care Physician Patient Instructions: Abdominal Pain, Adult ED, Colitis (DC) Add. Discharge Instructions: Try to stay well-hydrated and drink plenty of fluids. Follow a liquid diet for the next 24 hours at least until your stomach is starting to settle down. For severe pain you can use the hydrocodone/acetaminophen 5/325 mg pills 1 every 6 hours as needed for severe pain. For abdominal cramping and pain you can use the dicyclomine or Bentyl 10 mg by mouth every 6 hours as needed for pain and cramping. Use the dissolving Zofran or ondansetron tablets 4 mg every 6 hours as needed for nausea and vomiting. The steroid shots from tonight will continue to help with inflammation for the n ext 7 to 10 days. Check back with your regular doctor or gastroenterology doctor for continued symptoms. All discharge instructions reviewed with patient and/or family. Voiced understanding. Scripts Hydrocodone/Acetaminophen (Hydrocodone-Acetamin 5-325 mg) 5 Mg-325 Mg Tablet 1 TAB PO Q6H PRN for PAIN SEVERE for 3 Days, #12 TAB 0 Refills Prov: ADE GREGORIO MD 05/12/22 Ondansetron (Ondansetron Odt) 4 Mg Tab.rapdis 4 MG PO Q6H PRN for NAUSEA/VOMITING for 3 Days, #12 TAB 0 Refills Prov: ADE GREGORIO MD 05/12/22 Dicyclomine HCl (Dicyclomine HCl) 10 Mg Capsule 10 MG PO Q6H PRN for abdominal pain/cramping for 5 Days, #20 CAP 0 Refills Prov: ADE GREGORIO MD 05/12/22 ADE GREGORIO MD May 12, 2022 22:21
[2022-05-12 22:28] LABS: LIPASE 19 U/L (8-78)
[2022-05-12] MEDS ORDERED: HOLD METFORMIN - RECEIVED CONTRAST 20 ML VIAL IV SCH (22:30)
[2022-05-12] MEDS ORDERED: NS 100 ML (IVPB) BAG IV ONE (22:30)
[2022-05-12] MEDS ORDERED: IOHEXOL 350 MG/ML 100 ML (OMNIPAQUE 350) VIAL IV ONE (22:30)
[2022-05-12 22:33] LABS: ALANINE AMINOTRANSFERASE 16 U/L (0-55); ALBUMIN 4.4 GM/DL (3.2-4.5); ALKALINE PHOSPHATASE 53 U/L (40-136); BILIRUBIN,TOTAL 0.2 MG/DL (0.1-1.0); BUN/CREATININE RATIO 12; CALCIUM 9.8 MG/DL (8.5-10.1); CARBON DIOXIDE 23 MMOL/L (21-32); CHLORIDE 102 MMOL/L (98-107); CREATININE SERUM 0.66 MG/DL (0.60-1.30); GFR ESTIMATED 119; GLUCOSE 91 MG/DL (70-105); POTASSIUM 3.4 MMOL/L (3.6-5.0); SODIUM 138 MMOL/L (135-145); TOTAL PROTEIN 6.8 GM/DL (6.4-8.2)
[2022-05-12 22:42] LABS: ACETAMINOPHEN < 10 UG/ML (10-30); SALICYLATE < 0.3 MG/DL (5.0-20.0)
[2022-05-12 22:46] LABS: BILIRUBIN,URINE NEGATIVE (NEGATIVE); CLARITY,URINE CLEAR; COLOR,URINE YELLOW; GLUCOSE, URINE (UA) NEGATIVE (NEGATIVE); KETONES,URINE NEGATIVE (NEGATIVE); LEUKOCYTE ESTERASE ,URINE NEGATIVE (NEGATIVE); NITRITE,URINE NEGATIVE (NEGATIVE); PH,URINE 7.5 (5-9); PROTEIN,URINE NEGATIVE (NEGATIVE)
[2022-05-12 22:48] LABS: BACTERIA,URINE TRACE /HPF
[2022-05-12 22:55] LABS: AMPHETAMINE SCREEN, URINE NEGATIVE (NEGATIVE); BARBITURATE SCREEN URINE NEGATIVE (NEGATIVE); BENZODIAZEPINES SCREEN URINE NEGATIVE (NEGATIVE); CANNABINOID SCREEN, URINE NEGATIVE (NEGATIVE); COCAINE SCREEN URINE NEGATIVE (NEGATIVE); METHADONE STAT NEGATIVE (NEGATIVE); OPIATE SCREEN URINE NEGATIVE (NEGATIVE); OXYCODONE STAT NEGATIVE (NEGATIVE); PROPOXYPHENE STAT NEGATIVE (NEGATIVE); TRICYCLIC ANTIDEPRESSANTS SCRE NEGATIVE (NEGATIVE)
[2022-05-12] MEDS ORDERED: methylPREDNISolone 80 MG/ML (DEPO MEDROL) VIAL IM STA (23:17)
[2022-05-12] MEDS ORDERED: ONDA4TAB11 PO (23:27)
[2022-05-12] MEDS ORDERED: DICY10CA12 PO (23:27)
[2022-05-12] MEDS ORDERED: ACHD5005 PO (23:27)
[2022-05-12] MEDS ORDERED: RX-DICYCLOMINE 10 MG (BENTYL) CAP PPK#4 PO PRN (23:30)
[2022-05-12] MEDS ORDERED: RX-ONDANSETRON 4 MG ODT (ZOFRAN) PPK #4 PO PRN (23:30)
[2022-05-12 23:39] VITALS: BP 155/74
--- NOTE | 2022-05-13 08:12 | Diagnostic Imaging Report ---
PROCEDURE: CT abdomen and pelvis with contrast. TECHNIQUE: Multiple contiguous axial images were obtained through the abdomen and pelvis after administration of intravenous contrast. Auto Exposure Controls were utilized during the CT exam to meet ALARA standards for radiation dose reduction. All CT scans use one or more of the following dose optimizing techniques: automated exposure control, MA and/or KvP adjustment based on patient size and exam type or iterative reconstruction. INDICATION: Abdominal pain. Correlation is made with prior CT from 07/14/2014. The lung bases are clear. The liver and gallbladder are unremarkable. There is no biliary duct dilatation. Pancreas and spleen are unremarkable. No adrenal mass is identified. Kidneys are unremarkable. Aorta is nonaneurysmal. There is a small fat-containing umbilical hernia. Bowel loops appear to be normal in caliber. There is no obstruction. There are some nonspecific mildly prominent fluid-filled small bowel loops in the right pelvis. There is a right adnexal cyst measuring 2 cm. Bladder is unremarkable. No free fluid is seen. No inflammatory changes are identified. IMPRESSION: 1. 2 cm right adnexal cyst. 2. Nonspecific mildly prominent fluid-filled small bowel loops in the right pelvis, perhaps owing to enteritis. 3. Small fat-containing umbilical hernia. Dictated by: Dictated on workstation # [id number]
== END 2022-05-12 23:40 | disposition home or self-care (01) ==
LOC: EDUNIT# 21:54 → ER FS 22:05
DX: K52.9 Noninfective gastroenteritis and colitis, unspecified (principal); F17.210 Nicotine dependence, cigarettes, uncomplicated; Z90.49 Acquired absence of other specified parts of digestive tract; Z91.040 Latex allergy status
CPT/HCPCS: 36415; 74177; 80053; 80306; 80320; 80329; 81000; 83690; 85025; 86141; Q9967